=== PATIENT | female | born 1935 | race Caucasian/White ===

== ENCOUNTER 2019-07-07 15:23 | Inpatient (IN) | payer BC ==
[2019-07-07 15:58] VITALS: BMI 37.3
--- NOTE | 2019-07-07 16:10 | PDOC ---
History of Present Illness - General Chief Complaint: Syncope/Near Syncope Stated Complaint: Lightheaded Time Seen by Provider: 07/07/19 16:09 - History of Present Illness Initial Comments: 07/07/19 16:09 Ms. Delgadillo is an 84 yo female w/ pmh of HTN and HLD who presents for evaluation from PCP for evaluation of 3 day history of dizziness with additional . Patient describes this as "feeling drunk" although she denies any EtOH. Patient was at PCP's today who diagnosed new onset afib in 's in office and sent EKG. Additionally, Ms. Delgadillo reports she had a fall 2 weeks ago when her fell into her and that she hurt her lower back MAU at this time. Patient denies other complaints. The patient denies chest pain, shortness of breath, and headache. Denies fever, chills, nausea, vomit, diarrhea and constipation. Denies dysuria, frequency, urgency and hematuria. Past History - Past Medical History Allergies/Adverse Reactions: Allergies Allergy/AdvReac Type Severity Reaction Status Date / Time No Known Allergies Allergy Verified 07/07/19 15:55 HTN: Yes - Psycho Social/Smoking Cessation Hx Smoking History: Never smoked Hx Alcohol Use: No Drug/Substance Use Hx: No Review of Systems - Review of Systems Comments:: 07/07/19 16:53 GENERAL/CONSTITUTIONAL: No fever or chills. No weakness. HEAD, EYES, EARS, NOSE AND THROAT: No change in vision. No ear pain or discharge. No sore throat. CARDIOVASCULAR: No chest pain or shortness of breath RESPIRATORY: No cough, wheezing, or hemoptysis. GASTROINTESTINAL: No nausea, vomiting, diarrhea or constipation. GENITOURINARY: No dysuria, frequency, or change in urination. MUSCULOSKELETAL: No joint or muscle swelling or pain. No neck or back pain. SKIN: No rash NEUROLOGIC: +Dizziness w/ headache as described, no vertigo, loss of consciousness, or change in strength/sensation. ENDOCRINE: No increased thirst. No abnormal weight change HEMATOLOGIC/LYMPHATIC: No anemia, easy bleeding, or history of blood clots. ALLERGIC/IMMUNOLOGIC: No hives or skin allergy. *Physical Exam - Vital Signs Last Vital Signs Temp Pulse Resp BP Pulse Ox 98.8 F 72 18 125/60 98 07/07/19 15:25 07/07/19 15:25 07/07/19 15:25 07/07/19 15:25 07/07/19 15:25 - Physical Exam Comments: 07/07/19 16:54 GENERAL: Awake, alert, and fully oriented, in no acute distress HEAD: No signs of trauma, normocephalic, atraumatic EYES: PERRLA, EOMI, sclera anicteric, conjunctiva clear ENT: Auricles normal inspection, hearing grossly normal, nares patent, oropharynx clear without exudates. Moist mucosa NECK: Normal ROM, supple, no lymphadenopathy, JVD, or masses LUNGS: No distress, speaks full sentences, clear to auscultation bilaterally HEART: Regular rate and rhythm, normal S1 and S2, no murmurs, rubs or gallops, peripheral pulses normal and equal bilaterally. ABDOMEN: Soft, nontender, normoactive bowel sounds. No guarding, no rebound. No masses EXTREMITIES: +1+ Pedal edema MAU, otherwise normal inspection, Normal range of motion, no edema. No clubbing or cyanosis. NEUROLOGICAL: Cranial nerves II through XII grossly intact. Normal speech, normal gait, no focal sensorimotor deficits SKIN: Warm, Dry, normal turgor, no rashes or lesions noted. ED Treatment Course - LABORATORY CBC & Chemistry Diagram: 07/07/19 16:00 07/07/19 16:00 Medical Decision Making - Medical Decision Making 07/07/19 18:17 Ms. Delgadillo is an 84 yo female w/ pmh as described who presents from PCP for evaluation of new onset afib. Patient evaluated with cardiac labs as below and placed on eyelet maker. Repeat EKG confirms afib and patient will be admitted for further cardiac evaluation. Triple Valve Mechanic paged for anticoagulation advice. Hospital team paged for admission. 07/07/19 18:33 Discussed patient with cardiology who suggested 5mg eliquis PO BID for anticoagulation and will evaluate in hospital. Discharge - Discharge Information Problems reviewed: Yes Clinical Impression/Diagnosis: New onset a-fib - Admission Yes - Follow up/Referral Referrals: Jacob Mackey MD [Primary Care Provider] - - Patient Discharge Instructions - Post Discharge Activity
--- NOTE | 2019-07-07 16:53 | PDOC ---
Documentation entered by Julianne Espinoza SCRIBE, acting as scribe for Nirmal Cruz MD. Nirmal Cruz MD: This documentation has been prepared by the Alexis corral Xhesika, SCRIBE, under my direction and personally reviewed by me in its entirety. I confirm that the documentation accurately reflects all work, treatment, procedures, and medical decision making performed by me. Attending Attestation - Resident Resident Name: Karsten Petty - ED Attending Attestation I have performed the following: I have examined & evaluated the patient, The case was reviewed & discussed with the resident, I agree w/resident's findings & plan, Exceptions are as noted - HPI HPI: 07/07/19 16:33 The patient is a 84 year old female with a significant PMH of HTN nad HLD who presents to the emergency department for new onset A-fib in the 90's noted on EKG at PCP office. The patient notes she has been feeling lightheaded for the past couple of days when sitting up. Pt denies any other complaints. Patient denies chest pain, shortness of breath, headache and dizziness. Denies fever, chills, cough, nausea, vomiting, diarrhea and constipation. Allergies: NKDA PCP: Dr. Mackey Cards: Dr. Cameron - Physicial Exam PE: 07/07/19 16:35 GENERAL: The patient is awake, alert, and fully oriented, Nontoxic - in no acute distress. HEAD: Normocephalic, atraumatic. NECK: Normal range of motion, supple without lymphadenopathy, JVD, or masses. LUNGS: Breath sounds equal, clear to auscultation bilaterally. No wheezes, no crackles, no rales. HEART: Irregularly irregular ABDOMEN: Soft, nontender, normoactive bowel sounds. No guarding, no rebound. No masses. EXTREMITIES: Normal range of motion, NEUROLOGICAL: No facial asymmetry, Normal speech, normal gait. PSYCH: Normal mood, normal affect. SKIN: Warm, Dry, normal turgor, no rashes or lesions noted. - Medical Decision Making 07/07/19 16:52 Suspect her lightheadedness may be coming from A. fib The patient is a rate controlled We will obtain blood work we will discuss with cardiology regarding optimal anticoagulation Will admit for further management Heart Score/ECG Review - ECG Impressions Comment:: 07/07/19 16:51 Twelve-lead EKG was performed and reviewed by me. Heart rate is irregularly irregular, rate of [address] wave changes Impression atrial fibrillation
[2019-07-07 16:56] LABS: BASO % 0.9 % (0-2.0); HEMATOCRIT 36.5 % (32.4-45.2); HEMOGLOBIN 12.3 GM/dL (10.7-15.3); LYMPH % 35.7 % (8-40); MCH 30.2 pg (25.7-33.7); MCHC 33.7 g/dl (32.0-36.0); MEAN CELL VOLUME 89.7 fl (80-96); MONO % 9.4 % (3.8-10.2); PLATELET COUNT 140 K/MM3 (134-434); RBC 4.07 M/mm3 (3.60-5.2); RDW 13.4 % (11.6-15.6); WHITE BLOOD COUNT 4.5 K/mm3 (4.0-10.0)
[2019-07-07 17:04] LABS: INR 1.05 (0.83-1.09); PROTHROMBIN TIME (PATIENT) 12.4 SEC (9.7-13.0)
[2019-07-07 17:12] LABS: ALBUMIN 3.7 g/dl (3.4-5.0); BILIRUBIN,TOTAL 1.4 mg/dL (0.2-1); BLOOD UREA NITROGEN 11.2 mg/dL (7-18); CREATININE 0.7 mg/dL (0.55-1.3); POTASSIUM 3.6 mmol/L (3.5-5.1); TOT PROT 6.5 g/dl (6.4-8.2)
[2019-07-07] MEDS ORDERED: APIXABAN 5 MG TABLET ONE (18:37)
[2019-07-07] MEDS: APIXABAN 5 MG TABLET PO SCH ×2 (18:58→22:08)
--- NOTE | 2019-07-07 19:16 | PN ---
Teaching Attending Note Name of Resident: Angelita Potts ATTENDING PHYSICIAN STATEMENT I saw and evaluated the patient. I reviewed the resident's note and discussed the case with the resident. I agree with the resident's findings and plan as documented. SUBJECTIVE: Patient is an 84 year old woman with PMH of Osteoarthritis, HTN, Bilateral total knee replacement and HLD who presents from PCP's office for evaluation of 3 day history of dizziness with headache. Patient describes this as "feeling drunk" although she denies any alcohol ingestion. Patient was at PCP's today who diagnosed new onset Afib. Additionally, patient reports she had a fall 2 weeks ago when her fell into her and that she hurt her lower back. She uses a cane. Had been on lasix for leg edema but no official diagnosis of CHF. Patient denies chest pain, shortness of breath, headache, fever, chills, nausea , vomit, diarrhea, constipation, dysuria, frequency, urgency or hematuria. Denies tobacco, alcohol or illicit drug use. No obvious sick contacts or recent travel. OBJECTIVE: Alert and orthostatic Vital Signs Period Temp Pulse Resp BP Sys/Myrick Pulse Ox Last 24 Hr 98.8 F 72 18 125/60 98-99 HEENT: No Jaundice, eye redness or discharge, PERRLA, EOMI. Normocephalic, atraumatic. External ears are normal and hearing is grossly intact. No nasal discharge. Neck: Supple, nontender. No palpable adenopathy or thyromegaly. No JVD Chest: Good effort. Clear to auscultation and percussion. Heart: Irregularly irregular. No S3, rub or murmur Abdomen: Not distended, soft, Epigastric and LUQ tenderness and no HSM. No rebound or guarding. Normal bowel sounds. Ext: Peripheral pulses intact. Leg edema, L>R. Skin: Warm and dry. No petechiae, rash or ecchymosis. Neuro: Alert. Oriented x3. CN 2-12 grossly intact. Sensation grossly intact in all four extremities and DTR are symmetric. Psych: Appropriate mood and affect. Good insight. Current Medications Generic Name Dose Route Start Last Admin Trade Name Freq PRN Reason Stop Dose Admin Apixaban 5 mg 07/07/19 18:33 07/07/19 18:58 Eliquis - PO 5 mg BID RIZWAN Administration Abnormal Lab Results 07/07/19 07/07/19 07/07/19 16:00 16:00 16:00 Eosinophils % 5.0 H Anion Gap 5 L Total Bilirubin 1.4 H AST 14 L B-Natriuretic Peptide TSH 0.23 L 07/07/19 16:00 Eosinophils % Anion Gap Total Bilirubin AST B-Natriuretic Peptide 1134.7 H TSH ASSESSMENT AND PLAN: 1. New onset Afib - CXR shows cardiomegaly, pulmonary congestion and hilar prominence. CXR shows cardiomegaly, poor inspiratory effort/pulmonary congestion and hilar prominence. EKG shows afib with rate of 86 and T wave inversion in II, aVF, V1-5; and initial troponin is negative. Her [id number] score is 4 - ER staff spoke to the trouble operator and patient was started on Eliquis in the ER. Will get ECHO, repeat EKG and troponin and get fasting lipids. May have undiagnosed CHF (?diastolic dysfunction). Will avoid B blockers or diureses for now pending ECHO - in view of orthostasis/dizziness. Has low TSH - will get free T4 and T3RU; leg doppler and upper abdominal sonogram. Urinalysis pending. Will continue comprehensive care for all of patients comorbid conditions. 2. Obesity Counseled on the risks associated with obesity. Will provide patient all the necessary assistance, counseling and positive reinforcement to facilitate weight loss. Consult veterinary radiologist. 3. Hypertension - Restart suitable outpatient antihypertensive drugs when clinically appropriate. Revise regimen to ensure [id number] excellent BP control and staff counselor patient on the injurious effects of uncontrolled hypertension. Nonpharmacologic measures to control hypertension like weight loss , salt restriction and exercise discussed. Importance of adherence to treatment regimen and attainment of normotension emphasized. 4. DVT prophylaxis - On Eliquis 5. Advance directives - Full code
--- NOTE | 2019-07-07 19:45 | HP ---
CHIEF COMPLAINT: new onset afib PCP: Dr. Krishnamurthy HISTORY OF PRESENT ILLNESS: Pt is an 84 y/o F w/ pmhx of HLD presenting to ED from her PCP office after she was found to be in Afib. Pt reports that for the past 3 days she experienced 1 to 2 episodes of dizziness a day. The dizziness is worsened with standing and improves with sitting. Also associated with blacking out of vision which quickly resolves. Pt had a similar episode 1 year ago, during the summer, in which she felt dizzy and fell to the ground. Pt denies any falls with her current dizzy spells over the last 3 days. Pt has been using a cane for ambulation since 2005. On ROS she endorsed left sided lower back pain which started after her fell on top of her 3 weeks ago while she was helping him in the bathroom. In addition, she is complaining of her feet feeling colder than usual. Pt denies fever, chills, RAYMOND, SOB, jaw pain, chest pain, Abd pain, urinary changes or numbness and tingling. Pt has been on Lasix and a potassium supplement since 2014 due to edema, but she cannot recall an exact diagnosis. ER course was notable for: (1) EKG with irregularly irregular rhythm, HR 86, non-specific T wave change (2) Trop negative, BNP 1134.7, TSH 0.23, Tbili 1.4 (3) CXR showing cardiomegaly, pulmonary congestion and hilar prominence. Recent Travel: denies PAST MEDICAL HISTORY: HLD, HTN ? 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 Residence: Pt lives with her uses cane to walk Allergies No Known Allergies Allergy (Verified 07/07/19 15:55) HOME MEDICATIONS: REVIEW OF SYSTEMS CONSTITUTIONAL: Absent: fever, chills, diaphoresis, generalized weakness, malaise, loss of appetite, weight change HEENT: visual changes- blacking out of vision with dizziness Absent: rhinorrhea, nasal congestion, throat pain, throat swelling, difficulty swallowing, mouth swelling, ear pain, eye pain, CARDIOVASCULAR: Absent: chest pain, syncope, palpitations, irregular heart rate, lightheadedness , peripheral edema RESPIRATORY: Absent: cough, shortness of breath, dyspnea with exertion, orthopnea, wheezing, stridor, hemoptysis GASTROINTESTINAL: Absent: abdominal pain, abdominal distension, nausea, vomiting, diarrhea, constipation, melena, hematochezia GENITOURINARY: Absent: dysuria, frequency, urgency, hesitancy, hematuria, flank pain, genital pain MUSCULOSKELETAL: Absent: myalgia, arthralgia, joint swelling, back pain, neck pain SKIN: Absent: rash, itching, pallor HEMATOLOGIC/IMMUNOLOGIC: Absent: easy bleeding, easy bruising, lymphadenopathy, frequent infections ENDOCRINE: Absent: unexplained weight gain, unexplained weight loss, heat intolerance, cold intolerance NEUROLOGIC: dizziness, Absent: headache, focal weakness or paresthesias, unsteady gait, seizure, mental status changes, bladder or bowel incontinence PSYCHIATRIC: Absent: anxiety, depression, suicidal or homicidal ideation, hallucinations. PHYSICAL EXAMINATION Vital Signs - 24 hr 07/07/19 07/07/19 15:25 16:30 Temperature 98.8 F Pulse Rate 72 Respiratory 18 Rate Blood Pressure 125/60 O2 Sat by Pulse 98 99 Oximetry (%) GENERAL: Awake, alert, and fully oriented, in no acute distress. Orthostatic vitals: supine 116/66 (HR 77), sitting 103/63 (HR 81), standing 84/55 (HR 86) HEAD: Normal with no signs of trauma. EYES: Pupils equal, round and reactive to light, extraocular movements intact, sclera anicteric, conjunctiva clear. No lid lag. EARS, NOSE, THROAT: Ears normal, nares patent, oropharynx clear without exudates. Moist mucous membranes. NECK: Normal range of motion, supple without lymphadenopathy, JVD, or masses. LUNGS: Breath sounds equal, clear to auscultation bilaterally. No wheezes, and no crackles. No accessory muscle use. HEART: Regular rate, irregularly irregular rhythm, normal S1 and S2 without murmur, rub or gallop. ABDOMEN: Soft, TTP in epigastric area and LUQ, not distended, normoactive bowel sounds, no guarding, no rebound, no masses. MUSCULOSKELETAL: Normal range of motion at all joints. No bony deformities or tenderness. No CVA tenderness. UPPER EXTREMITIES: 2+ pulses, warm, well-perfused. No cyanosis. No clubbing. No peripheral edema. LOWER EXTREMITIES: 2+ pulses, warm, well-perfused. TTP on L lower leg above ankle, no tenderness on R leg. 1+ peripheral edema L>R. NEUROLOGICAL: Cranial nerves II-XII intact. Normal speech. Normal gait. PSYCHIATRIC: Cooperative. Good eye contact. Appropriate mood and affect. SKIN: Warm, dry, normal turgor, no rashes or lesions noted, normal capillary refill. Laboratory Results - last 24 hr 07/07/19 07/07/19 07/07/19 16:00 16:00 16:00 WBC 4.5 RBC 4.07 Hgb 12.3 Hct 36.5 MCV 89.7 MCH 30.2 MCHC 33.7 RDW 13.4 Plt Count 140 MPV 10.0 Absolute Neuts (auto) 2.2 Neutrophils % 49.0 Lymphocytes % 35.7 Monocytes % 9.4 Eosinophils % 5.0 H Basophils % 0.9 Nucleated RBC % 0 PT with INR INR Sodium 140 Potassium 3.6 Chloride 106 Carbon Dioxide 29 Anion Gap 5 L BUN 11.2 Creatinine 0.7 Est GFR (CKD-EPI)AfAm 92.86 Est GFR (CKD-EPI)NonAf 80.12 Random Glucose 87 Calcium 9.0 Total Bilirubin 1.4 H AST 14 L ALT 16 Alkaline Phosphatase 78 Creatine Kinase 83 Troponin I < 0.02 B-Natriuretic Peptide Total Protein 6.5 Albumin 3.7 TSH 0.23 L Free T4 07/07/19 07/07/19 07/07/19 16:00 16:00 16:00 WBC RBC Hgb Hct MCV MCH MCHC RDW Plt Count MPV Absolute Neuts (auto) Neutrophils % Lymphocytes % Monocytes % Eosinophils % Basophils % Nucleated RBC % PT with INR 12.40 INR 1.05 Sodium Potassium Chloride Carbon Dioxide Anion Gap BUN Creatinine Est GFR (CKD-EPI)AfAm Est GFR (CKD-EPI)NonAf Random Glucose Calcium Total Bilirubin AST ALT Alkaline Phosphatase Creatine Kinase Troponin I B-Natriuretic Peptide 1134.7 H Total Protein Albumin TSH Free T4 1.25 ASSESSMENT/PLAN: Pt is an 84 y/o F w/ pmhx of HLD presenting to ED from her PCP office after she was found to be in Afib. Pt reports that for the past 3 days she experienced 1 to 2 episodes of dizziness a day. # New onset Afib - CXR shows cardiomegaly, poor inspiratory effort/pulmonary congestion and hilar prominence. EKG shows afib with rate of 86 and T wave inversion in II, aVF, V1-5; and initial troponin is negative x2. Her [id number] VASc score is 4. May have undiagnosed CHF (?diastolic dysfunction). Will avoid B blockers or diureses for now pending ECHO - given that pt has orthostasis and dizziness on physical exam. Pt also found to have elevated T bili with TTP in her upper abdominal area on physical exam in addition to LE edema and TTP in the LLE, will obtain u/s to r/o pathology. - ED consulted cardiology, Dr. Cameron, and patient was started on Eliquis 5mg BID in the ED. - Cardiology following, appreciate recommendations - ECHO - repeat EKG - obtain fasting lipids. - leg doppler and upper abdominal sonogram. # Low TSH - 0.23 - free T4 and T3RU # HTN- HTN listed in pt pmhx however pt denies this dx and states she doesn't take any HTN meds, BPs have been low in ED and pt has + orthostatic vitals - confirm pt home meds - if pt has hypertension meds, resume when clinically appropriate # FEN - holding maintenance fluids for now pending CHF w/u - replete PRN - diabetic/ Na controlled diet # Ppx - DVT prophylaxis - On Eliquis # Dispo- admit to tele, full code Visit type - Emergency Visit Emergency Visit: Yes ED Registration Date: 07/07/19 Care time: The patient presented to the Emergency Department on the above date and was hospitalized for further evaluation of their emergent condition. - New Patient This patient is new to me today: Yes Date on this admission: 07/08/19 - Critical Care Critical Care patient: No ATTENDING PHYSICIAN STATEMENT I saw and evaluated the patient. I reviewed the resident's note and discussed the case with the resident. I agree with the resident's findings and plan as documented. SUBJECTIVE: OBJECTIVE: ASSESSMENT AND PLAN:
[2019-07-08] MEDS: SODIUM CHLORIDE 1,000 ML IV SCH (06:30)
[2019-07-08 06:59] LABS: BASO % 1.1 % (0-2.0); EOS % 5.6 % (0-4.5); HEMOGLOBIN 11.9 GM/dL (10.7-15.3); LYMPH % 36.4 % (8-40); MCH 30.3 pg (25.7-33.7); MEAN CELL VOLUME 88.9 fl (80-96); MEAN PLT VOLUME 9.6 fl (7.5-11.1); MONO % 8.5 % (3.8-10.2); NEUT % 48.4 % (42.8-82.8); PLATELET COUNT 133 K/MM3 (134-434); RBC 3.94 M/mm3 (3.60-5.2); RDW 13.4 % (11.6-15.6); WHITE BLOOD COUNT 3.5 K/mm3 (4.0-10.0)
[2019-07-08 07:33] LABS: ALBUMIN 3.3 g/dl (3.4-5.0); BILIRUBIN,TOTAL 1.6 mg/dL (0.2-1); BLOOD UREA NITROGEN 12.3 mg/dL (7-18); CALCIUM 8.8 mg/dL (8.5-10.1); CREATININE 0.7 mg/dL (0.55-1.3); MAGNESIUM 2.2 mg/dL (1.8-2.4); PHOSPHOROUS 4.2 mg/dL (2.5-4.9); POTASSIUM 3.7 mmol/L (3.5-5.1)
[2019-07-08] MEDS: APIXABAN 5 MG TABLET PO SCH ×2 (10:48→21:40)
--- NOTE | 2019-07-08 10:50 | CON.CARD ---
Consult Consult Specialty:: Cardiology Referred by:: Medicine Reason for Consultation:: afib - History of Present Illness Chief Complaint: dizzy History of Present Illness: 84F h/o HTN, HLD p/w 3 days of dizziness, headache. Feels unsteady and like she is drunk but has not used alcohol. Went to Dr. Mackey yesterday, new dx afib. No chest pain, palps, dyspnea, edema. Feels a little better today. - Alcohol/Substance Use Hx Alcohol Use: No - Smoking History Smoking history: Never smoked Have you smoked in the past 12 months: No Home Medications - Allergies Allergies/Adverse Reactions: Allergies Allergy/AdvReac Type Severity Reaction Status Date / Time No Known Allergies Allergy Verified 07/07/19 15:55 Family Medical History Family History: Unremarkable Review of Systems - Review of Systems Constitutional: reports: No Symptoms Eyes: reports: No Symptoms HENT: reports: No Symptoms Neck: reports: No Symptoms Cardiovascular: reports: No Symptoms Respiratory: reports: No Symptoms Gastrointestinal: reports: No Symptoms Genitourinary: reports: No Symptoms Musculoskeletal: reports: No Symptoms Integumentary: reports: No Symptoms Neurological: reports: Dizziness Endocrine: reports: No Symptoms Hematology/Lymphatic: reports: No Symptoms Psychiatric: reports: No Symptoms Vital Signs: Vital Signs Temperature 98.1 F 07/08/19 06:00 Pulse Rate 79 07/08/19 06:00 Respiratory Rate 20 07/08/19 06:00 Blood Pressure 113/40 L 07/08/19 06:00 O2 Sat by Pulse Oximetry (%) 95 07/07/19 22:14 Constitutional: Yes: No Distress, Calm Eyes: Yes: Conjunctiva Clear, EOM Intact HENT: Yes: Atraumatic, Normocephalic Neck: Yes: Supple, Trachea Midline Respiratory: Yes: Regular, CTA Bilaterally Gastrointestinal: Yes: Normal Bowel Sounds, Soft Cardiovascular: Yes: Pulse Irregular JVD: No PMI: Non-Displaced Heart Sounds: Yes: S1, S2 Extremities: No: Cold Edema: No Integumentary: No: Jaundice Neurological: Yes: Alert, Oriented Psychiatric: No: Agitated - Other Data Labs, Other Data: CBC, BMP 07/08/19 06:30 07/08/19 06:30 INR, PTT INR 1.05 (0.83-1.09) 07/07/19 16:00 Troponin, BNP 07/07/19 07/07/19 07/08/19 16:00 16:00 02:25 Troponin I < 0.02 < 0.02 B-Natriuretic Peptide 1134.7 H Troponin, BNP 07/07/19 07/07/19 07/08/19 16:00 16:00 02:25 Troponin I < 0.02 < 0.02 B-Natriuretic Peptide 1134.7 H Assessment/Plan EKG: afib, nonspecific ST T wave changes CXR: no acute process tele: afib, rate controlled atrial fibrillation - start metoprolol succinate 12.5 mg daily - [id number] warrants AC, however patient refuses to take a blood thinner due to fears she may bleed. discussed with patient at length, she understands risk of stroke. mode wilson'ed - continue aspirin 81 mg daily -echo pending dizziness - monitoring on tele - check orthostatics - echo pending HTN - stable here off meds, start metoprolol as above
--- NOTE | 2019-07-08 11:58 | ECHO ---
Name: LUIS GRADY Exam:Adult Echocardiogram Study Date: 07/08/2019 08:35 AM Age: 84 yrs Reason For Study: ef Height: 66 in Weight: 231 lb BSA: 2.1 m2 MMode/2D Measurements & Calculations IVSd: 1.0 cm Ao root diam: 3.3 cm LVIDd: 5.1 cm LA dimension: 2.4 cm LVIDs: 3.5 cm LVPWd: 0.90 cm EDV(Teich): 124.5 ml LVOT diam: 2.0 cm ESV(Teich): 51.1 ml LAV (MOD-bp): 108.0 ml Doppler Measurements & Calculations MV E max marco a: 110.0 cm/sec Ao V2 max: 148.7 cm/sec MV A max marco a: 39.3 cm/sec Ao max P.8 mmHg MV E/A: 2.8 AI P1/2t: 326.2 msec MV dec time: 0.15 sec KATIE(V,D): 2.1 cm2 AI max marco a: 365.9 cm/sec LV V1 max P.5 mmHg AI max P.5 mmHg LV V1 max: 93.1 cm/sec AI dec slope: 328.5 cm/sec2 MR max marco a: 332.5 cm/sec TR max marco a: 236.9 cm/sec MR max P.2 mmHg TR max P.9 mmHg PA V2 max: 99.1 cm/sec Med Peak E' Marco A: 7.8 cm/sec PA max P.9 mmHg Med E/e': 14.0 Lat Peak E' Marco A: 10.3 cm/sec Lat E/e': 10.6 PI Vmax: 171.0 cm/sec Procedure The study was technically difficult with many images being suboptimal in quality. Left Ventricle The left ventricular size, thickness and function are normal. The left ventricular ejection fraction is normal. The left ventricular wall motion is normal. Right Ventricle The right ventricle is not well visualized. Atria Normal left and right atrial size and function. Mitral Valve There is mild mitral valve thickening. There is no mitral valve stenosis. There is mild to moderate m itral regurgitation. Tricuspid Valve There is mild tricuspid valve thickening. There is no tricuspid stenosis. There is mild tricuspid regurgitation. Right ventricular systolic pressure is normal. Aortic Valve The aortic valve is normal in structure and function. No hemodynamically significant valvular aortic stenosis. Trace to mild aortic regurgitation. Pulmonic Valve The pulmonic valve is not well visualized. Great Vessels The aortic root is normal size. Pericardium/Pleura There is no pericardial effusion. Interpretation Summary The left ventricular size, thickness and function are normal The left ventricular ejection fraction is normal. The left ventricular wall motion is normal. There is mild tricuspid regurgitation. Right ventricular systolic pressure is normal. Trace to mild aortic regurgitation. There is mild to moderate mitral regurgitation. The study was technically difficult with many images being suboptimal in quality. MD Marquez Stallings 07/08/2019 11:58 AM
--- NOTE | 2019-07-08 12:17 | EKG ---
Test Reason : Blood Pressure : / mmHG Vent. Rate : 086 BPM Atrial Rate : 092 BPM P-R Int : 000 ms QRS Dur : 084 ms QT Int : 408 ms P-R-T Axes : 000 025 -56 degrees QTc Int : 488 ms POOR DATA QUALITY, INTERPRETATION MAY BE ADVERSELY AFFECTED ATRIAL FIBRILLATION ABNORMAL ECG WHEN COMPARED WITH ECG OF 23-DEC-2002 15:25, ATRIAL FIBRILLATION HAS REPLACED SINUS RHYTHM INVERTED T WAVES HAVE REPLACED NONSPECIFIC T WAVE ABNORMALITY IN LATERAL LEADS QT HAS LENGTHENED Confirmed by BETHANY CORBETT, ANTONIETA ([id number]) on 07/08/2019 12:16:54 PM Referred By: Confirmed By:ANTONIETA SIMS MD
[2019-07-08] MEDS: metoPROLOL SUCCINATE 25 MG TAB.SR.24H (FP) PO SCH (12:23)
--- NOTE | 2019-07-08 14:16 | PN ---
Teaching Attending Note Name of Resident: Susan Urrutia ATTENDING PHYSICIAN STATEMENT I saw and evaluated the patient. I reviewed the resident's note and discussed the case with the resident. I agree with the resident's findings and plan as documented. SUBJECTIVE: no fever or chills. No palpitations . no cp ro SOB. OBJECTIVE: NAD , awake, alert and oriented. CV:regular at the time of the exam Lungs: CTAB Ext : trace edema on LE Neck with no LAP . thyroid with no nodules or enlargement ASSESSMENT AND PLAN: 84 y/o lady with h/o HTN, OA, b/l TKR, and HLP who presented with dizziness and was found to have new onset A fib . 1- New onset A fib: trigger is not known. Echo with mild to mod MR. TFTs indicate subclinical hyperthyroidism. No sings of CHF - appreciate card input - cont torpol - cont ASa. refused any AC, including eliquis, due to risk og bleeding. I d.w her the risk of stroke , and that ASA is not as protective. She understands and accepts - Will address TFT 2- Subclinical hyperthyroidism: - will as Endo to evaluate if treatment is needed in the setting of new onset A fib. - obtain FT3 3- Elevated total bili. with nl LFTs - US with stones and CBD dialtion. - Order direct Bili - Order MRCP w/o c 4- Pancytopenia ( leukopenia and thrombocytopenia) . - etiology is not known, it could be due to Subclinical hyperthyroidism, Vs viral illness, VS BM etiology like MDS especially with the Eosinophelia - will refer to heme as out pt . repeat testing as out pt DIspo : discharge depends on above w/u and findings.
--- NOTE | 2019-07-08 14:23 | EKG ---
Test Reason : Blood Pressure : / mmHG Vent. Rate : 086 BPM Atrial Rate : 100 BPM P-R Int : 000 ms QRS Dur : 096 ms QT Int : 410 ms P-R-T Axes : 000 009 -67 degrees QTc Int : 490 ms ATRIAL FIBRILLATION PROLONGED QT ABNORMAL ECG WHEN COMPARED WITH ECG OF 07-JUL-2019 15:39, NO SIGNIFICANT CHANGE WAS FOUND Confirmed by ANTONIETA SIMS MD ([id number]) on 07/08/2019 2:22:39 PM Referred By: Confirmed By:ANTONIETA SIMS MD
[2019-07-08] MEDS ORDERED: PT OWN MED DRAWER 7, Y5N ONE (16:12)
[2019-07-08 16:56] LABS: BILIRUBIN,DIRECT 0.4 mg/dL (0.0-0.2)
[2019-07-08] MEDS: METHIMAZOLE 5 MG TABLET (FP) PO SCH (17:59)
--- NOTE | 2019-07-08 18:11 | PN ---
Physical Exam: SUBJECTIVE: Patient seen and examined in the morning. No acute events overnight on telemetry monitoring. No complaints of chest pain, shortness of breath, abdominal pain, nausea, vomiting, diarrhea, headache or dizziness. OBJECTIVE: Vital Signs Period Temp Pulse Resp BP Sys/Myrick Pulse Ox Last 24 Hr 97.8 F-98.1 F 72-88 10-22 104-122/40-79 95-98 GENERAL: The patient is awake, alert, and fully oriented, in no acute distress. HEAD: Normal with no signs of trauma. EYES: PERRL, extraocular movements intact, sclera anicteric, conjunctiva clear. LUNGS: Breath sounds equal, clear to auscultation bilaterally, no wheezes, no crackles HEART: Irregularly irregular. No murmurs appreciated. ABDOMEN: Soft, nontender, nondistended, normoactive bowel sounds, no guarding, no rebound. EXTREMITIES: 2+ pulses, warm, well-perfused, +1 edema b/l lower extremities. NEUROLOGICAL: Cranial nerves II through XII grossly intact. Normal speech SKIN: Warm, dry, normal turgor, no rashes or lesions noted Laboratory Results - last 24 hr 07/07/19 07/08/19 07/08/19 16:00 02:25 06:30 WBC 3.5 L RBC 3.94 Hgb 11.9 Hct 35.0 MCV 88.9 MCH 30.3 MCHC 34.0 RDW 13.4 Plt Count 133 L MPV 9.6 Absolute Neuts (auto) 1.7 Neutrophils % 48.4 Lymphocytes % 36.4 Monocytes % 8.5 Eosinophils % 5.6 H Basophils % 1.1 Nucleated RBC % 0 Sodium Potassium Chloride Carbon Dioxide Anion Gap BUN Creatinine Est GFR (CKD-EPI)AfAm Est GFR (CKD-EPI)NonAf Random Glucose Calcium Phosphorus Magnesium Total Bilirubin Direct Bilirubin AST ALT Alkaline Phosphatase Troponin I < 0.02 Total Protein Albumin Triglycerides Cholesterol Total LDL Cholesterol HDL Cholesterol TSH Free T4 1.25 07/08/19 07/08/19 06:30 06:30 WBC RBC Hgb Hct MCV MCH MCHC RDW Plt Count MPV Absolute Neuts (auto) Neutrophils % Lymphocytes % Monocytes % Eosinophils % Basophils % Nucleated RBC % Sodium 142 Potassium 3.7 Chloride 108 H Carbon Dioxide 30 Anion Gap 5 L BUN 12.3 Creatinine 0.7 Est GFR (CKD-EPI)AfAm 92.86 Est GFR (CKD-EPI)NonAf 80.12 Random Glucose 91 Calcium 8.8 Phosphorus 4.2 Magnesium 2.2 Total Bilirubin 1.6 H Direct Bilirubin 0.4 H AST 13 L ALT 13 Alkaline Phosphatase 74 Troponin I Total Protein 6.0 L Albumin 3.3 L Triglycerides 137 Cholesterol 149 Total LDL Cholesterol 79 HDL Cholesterol 46 TSH 0.35 L Free T4 Active Medications Generic Name Dose Route Start Last Admin Trade Name Freq PRN Reason Stop Dose Admin Aspirin 81 mg 07/09/19 10:00 Ecotrin - PO DAILY RIZWAN Sodium Chloride 1,000 mls @ 75 mls/hr 07/08/19 05:45 07/08/19 06:30 Normal Saline - IV 75 mls/hr ASDIR RIZWAN Administration Methimazole 2.5 mg 07/08/19 15:45 07/08/19 17:59 Tapazole - PO 2.5 mg DAILY RIZWAN Administration Metoprolol Succinate 12.5 mg 07/08/19 11:00 07/08/19 12:23 Toprol Xl - PO 12.5 mg DAILY RIZWAN Administration ASSESSMENT/PLAN: 84 F with PMH of HLD who presents with new onset Afib. 1) New Onset Afib -Echo shows mild to moderate MR, with normal left ventricular function. -Metoprolol 12.5 mg BID PO -Eliquis 5 mg BID PO -Continue ASA 81 mg PO -Cardiology consulted, appreciate recs 2)Suspected Subclinical hyperthyroidism -Repeat TSH, T4, T3 -Methimazole 2.5 mg PO Qdaily -Endocrinology consulted, appreciate recs 3)Elevated total bilirubin -Abdominal U/S shows dilated CBD. -Follow up fractionated billirubin. -MRCP for tomorrow. 4)Pancytopenia -May be secondary to viral illness, or to hyperthyroidism, or to MDS. -Will need to follow up with Heme/Onc as outpatient. -Trend CBC 5) Hx of HLD -Continue Atorvastatin 40 mg PO HS DVT: Patient is now Eliquis 5 mg PO BID F: NS @ 75 ml/hr E: Trend CMP N: Diabetic/Sodium Week Dispo: Admitted to telemetery. Visit type - Emergency Visit Emergency Visit: Yes ED Registration Date: 07/07/19 Care time: The patient presented to the Emergency Department on the above date and was hospitalized for further evaluation of their emergent condition. - New Patient This patient is new to me today: Yes Date on this admission: 07/08/19 - Critical Care Critical Care patient: No ATTENDING PHYSICIAN STATEMENT I saw and evaluated the patient. I reviewed the resident's note and discussed the case with the resident. I agree with the resident's findings and plan as documented. SUBJECTIVE: OBJECTIVE: ASSESSMENT AND PLAN:
[2019-07-08] MEDS ORDERED: ATORVASTATIN CA 40 MG TABLET (FP) PO SCH (22:00)
[2019-07-08] MEDS ORDERED: APIXABAN 2.5 MG TABLET PO SCH (22:00)
[2019-07-09 07:04] LABS: BASO % 1.2 % (0-2.0); EOS % 5.4 % (0-4.5); HEMOGLOBIN 11.9 GM/dL (10.7-15.3); LYMPH % 31.6 % (8-40); MCH 30.1 pg (25.7-33.7); MCHC 34.1 g/dl (32.0-36.0); MEAN CELL VOLUME 88.4 fl (80-96); MEAN PLT VOLUME 9.8 fl (7.5-11.1); MONO % 8.9 % (3.8-10.2); NEUT % 52.9 % (42.8-82.8); PLATELET COUNT 131 K/MM3 (134-434); RBC 3.96 M/mm3 (3.60-5.2); RDW 14.1 % (11.6-15.6); WHITE BLOOD COUNT 3.6 K/mm3 (4.0-10.0)
[2019-07-09 07:55] LABS: BILIRUBIN,DIRECT 0.4 mg/dL (0.0-0.2); BILIRUBIN,TOTAL 1.4 mg/dL (0.2-1); BLOOD UREA NITROGEN 11.2 mg/dL (7-18); CREATININE 0.6 mg/dL (0.55-1.3); POTASSIUM 3.6 mmol/L (3.5-5.1)
[2019-07-09] MEDS: SODIUM CHLORIDE 1,000 ML IV SCH (08:42)
[2019-07-09] MEDS ORDERED: ASPIRIN COATED 81 MG TABLET.EC PO SCH (10:00)
[2019-07-09] MEDS ORDERED: PT OWN MED DRAWER 7, Y5N ONE (10:19)
[2019-07-09] MEDS: APIXABAN 5 MG TABLET PO SCH (10:20)
[2019-07-09] MEDS: metoPROLOL SUCCINATE 25 MG TAB.SR.24H (FP) PO SCH (10:21)
[2019-07-09] MEDS: METHIMAZOLE 5 MG TABLET (FP) PO SCH (10:33)
--- NOTE | 2019-07-09 11:28 | PN ---
Progress Note (short form) - Note Progress Note: s: no cp sob palps dizzy Current Medications Generic Name Dose Route Start Last Admin Trade Name Donita PRN Reason Stop Dose Admin Apixaban 5 mg 07/08/19 22:00 07/09/19 10:20 Eliquis - PO 5 mg BID RIZWAN Administration Atorvastatin Calcium 40 mg 07/08/19 22:00 07/08/19 21:40 Lipitor - PO 40 mg HS RIZWAN Administration Sodium Chloride 1,000 mls @ 75 mls/hr 07/08/19 05:45 07/09/19 08:42 Normal Saline - IV Not Given ASDIR RIZWAN Methimazole 2.5 mg 07/08/19 15:45 07/09/19 10:33 Tapazole - PO 2.5 mg DAILY RIZWNA Administration Metoprolol Succinate 12.5 mg 07/08/19 11:00 07/09/19 10:21 Toprol Xl - PO 12.5 mg DAILY RIZWAN Administration Vital Signs Period Temp Pulse Resp BP Sys/Myrick Pulse Ox Last 24 Hr 97.9 F-98.0 F 80-89 15-20 94-135/59-73 97-97 Constitutional: Yes: No Distress, Calm Eyes: Yes: Conjunctiva Clear Neck: Yes: Supple, Trachea Midline Respiratory: Yes: Regular, CTA Bilaterally Gastrointestinal: Yes: Normal Bowel Sounds, Soft Cardiovascular: Yes: Pulse Irregular JVD: No PMI: Non-Displaced Heart Sounds: Yes: S1, S2 Extremities: No: Cold Edema: No Integumentary: No: Jaundice Neurological: Yes: Alert, Oriented Psychiatric: No: Agitated CBC, BMP 07/09/19 06:25 07/09/19 06:25 Assessment/Plan EKG: afib, nonspecific ST T wave changes CXR: no acute process tele: afib, rate controlled atrial fibrillation - started metoprolol succinate 12.5 mg daily here, rate controlled - [id number] warrants AC, however patient refuses to take a blood thinner due to fears she may bleed. discussed with patient at length, she understands risk of stroke. mode wilson'ed - continue aspirin 81 mg daily - echo here unremarkable dizziness - monitoring on tele - check orthostatics - echo pending HTN - stable cardiac wolf stable
[2019-07-09 14:44] VITALS: TEMP 97.7
--- NOTE | 2019-07-09 14:46 | PN ---
Teaching Attending Note Name of Resident: Royce Lamb ATTENDING PHYSICIAN STATEMENT I saw and evaluated the patient. I reviewed the resident's note and discussed the case with the resident. I agree with the resident's findings and plan as documented. SUBJECTIVE: No pain in chest, no fever or chills, no awad. No dizziness. No palpitations OBJECTIVE: NAD CV: irreg irreg Lungs: CTAB Ext : no edema Abd: soft, NT, ND , NL BS . NO hepatomegaly ASSESSMENT AND PLAN: 84 y/o lady with h/o HTN, OA, b/l TKR, and HLP who presented with dizziness and was found to have new onset A fib . 1- New onset A fib: tele reviewed. rate is controlled . - cont torpol daily - patient agreed to eliquis and it was started yesterday evening. AC with Eliquis was d.w her again, and risks of bleeding including spinal bleed were explained. she understands, and will be cautious about falls, cuts, and will report any bleeding to her PCP 2- Subclinical hyperthyroidism: - case was d/w Dr. Montes by resident. Recs to start methimazole as she has A fib - f/u with him in office - TFTs in 6 weeks 3- CBD dilation on US. no abd pain, tenderness or ALt/ASt/ Alk phos elevation. indirect bili accounts for elevationin total Bili. after agreeing to MRCP, she declined today. - she was instructed she needs MRCP as out pt 4- Pancytopenia ( leukopenia and thrombocytopenia) . - etiology is not known, it could be due to Subclinical hyperthyroidism, Vs viral illness, VS BM etiology like MDS especially with the Eosinophelia - will refer to heme as out pt if count does not recover . repeat testing as out pt - Spoke to dr. Mackey and updated him on the aBove findings and the need for f/u. Dr. mackey confirmed that patient is on lasix 40 mg daily for edema and Kcl 10 meq /daily. so will cont those . I also learned that evelin has ITP, but her WBC was normal before. she still needs heme f/u if counts don't recover. DC home
[2019-07-09 14:48] VITALS: BP 130/79; PULSE 82
--- NOTE | 2019-07-09 18:26 | DS ---
Physical Exam: SUBJECTIVE: Patient seen and examined in the morning. Patient had runs of Atrial Fibrillation overnight. No complaints of chest pain, shortness of breath , abdominal pain, nausea, vomiting, diarrhea, headache, or dizziness. OBJECTIVE: Vital Signs Period Temp Pulse Resp BP Sys/Myrick Pulse Ox Last 24 Hr 97.7 F-98.0 F 80-89 15-20 93-135/53-79 97-97 PHYSICAL EXAM GENERAL: The patient is awake, alert, and fully oriented, in no acute distress. HEAD: Normal with no signs of trauma. EYES: PERRL, extraocular movements intact, sclera anicteric, conjunctiva clear. LUNGS: Breath sounds equal, clear to auscultation bilaterally, no wheezes, no crackles HEART: S1 S2, regular rate and rhythm on exam. No murmurs. ABDOMEN: Soft, nontender, nondistended, normoactive bowel sounds, no guarding, no rebound. EXTREMITIES: 2+ pulses, warm, well-perfused, +1 edema b/l lower extremities. NEUROLOGICAL: Cranial nerves II through XII grossly intact. Normal speech SKIN: Warm, dry, normal turgor, no rashes or lesions noted LABS Laboratory Results - last 24 hr 07/08/19 07/09/19 07/09/19 06:00 06:25 06:25 WBC 3.6 L RBC 3.96 Hgb 11.9 Hct 35.0 MCV 88.4 MCH 30.1 MCHC 34.1 RDW 14.1 Plt Count 131 L MPV 9.8 Absolute Neuts (auto) 1.9 Neutrophils % 52.9 Lymphocytes % 31.6 Monocytes % 8.9 Eosinophils % 5.4 H Basophils % 1.2 Nucleated RBC % 0 Sodium 140 Potassium 3.6 Chloride 107 Carbon Dioxide 29 Anion Gap 4 L BUN 11.2 Creatinine 0.6 Est GFR (CKD-EPI)AfAm 97.69 Est GFR (CKD-EPI)NonAf 84.29 Random Glucose 94 Calcium 9.0 Total Bilirubin 1.4 H Direct Bilirubin 0.4 H Free T3 3.2 HOSPITAL COURSE: Date of Admission:07/07/19 Date of Discharge: 07/09/19 84 F with PMH of HLD who presents with new onset Afib. Patient was seen by cardiology and was started on Eliquis 5mg PO BID. Patient was also started on Metoprolol 12.5 mg BID for rate control. Echo was completed and showed normal EF , and normal left ventricular function. Patient's ASA 81 mg was stopped. Patient was diagnosed with subclinical hyperthyroidism and was started on 2.5 mg methimazole PO Qdaily. Patient was also seen to have elevated total bilirubin , however repeat bilirbuin fractionation showed that it was due to unconjugated bilirubin. Patient was seen to be pancytopenic with eosinophilia, will follow up with Heme/Onc as outpatient. Patient refused MRI after she was found to have CBD dilation with gallstone. Was recommended to have MRI done as outpatient and follow up with GI. Relevant Imaging done this stay: Echo: Normal left ventricular size, normal left ventricular ejection fraction, mild tricuspid regurgitation, trace to mild aortic regurgitation, mild to moderate mitral regurgitation. Abdomen U/S: Overdistended gallbladder with intraluminal stones and without sonographic evidence of acute cholecystitis. Dilated common bile duct measuring 9.7 mm in diameter for which further evaluation is needed to rule out distal obstruction. Minutes to complete discharge: 35 Discharge Summary Problems reviewed: Yes Reason For Visit: NEW ONSET AFIB Current Active Problems Dilated cbd, acquired (Acute) New onset a-fib (Chronic) Pancytopenia (Chronic) Condition: Improved - Instructions Diet, Activity, Other Instructions: You were admitted to the hospital for palpitations. you were found to have Atrial fibrillation We are prescribing you blood thinner to help prevent complications from your new atrial fibrillation. Please take: Eliquis 5 mg, by mouth, twice a day. To help control your heart rate please take: Metoprolol succinate 12.5 mg by mouth daily While you were here we also found that your thyroid levels are low. Please take: Methimazole 2.5 mg by mouth once a day It is important that you follow up with the grain receiver, please call and make an appointment for Saturday, or after you see Dr. Mackey. you need repeat thyroid levels in 6-8 weeks We adjusted the dosage of your Lasix. Please take Lasix 40 mg, by mouth, daily. you common bile duct was dilated on ultrasound. you need MRI to evaluate the cause and rule out obstruction. You did not want to have the MRI done in the hospital. We highly recommend you follow up with a GI doctor and have an MRI done as an outpatient. We looked at your blood and found that you had an abnormal value in you eosinophils. This is one of the cells in your blood. It is important that you have repeat blood work (CBC) in one week to follow this number. We have provided a referral for the hemetologist if your count does not normalize . Please continue your other home medications as prescribed. Please make an appointment to follow up with your primary care physician within one week. Return to the Emergency Department if you have nausea, vomiting, headache, chest pain, or dizziness. Referrals: Jacob Mackey MD [Primary Care Provider] - 07/14/19 Ezequiel Abreu DO [Staff Physician] - 2 Weeks Yue Olsen MD [Staff Physician] - 1 Week Nirmal Nevarez MD [Staff Physician] - 3 Weeks Yareli Vasquez MD [Staff Physician] - 07/17/19 Disposition: HOME - Home Medications Comprehensive Discharge Medication List: Ambulatory Orders Atorvastatin Ca [Lipitor] 40 mg PO HS 07/08/19 Methimazole 2.5 mg PO DAILY #30 tablet 07/08/19 Metoprolol Succinate [Toprol XL -] 12.5 mg PO DAILY #30 tab.sr.24h 07/08/19 Potassium Chloride 10 meq PO DAILY 07/08/19 Apixaban [Eliquis] 5 mg PO BID 30 Days #60 tablet 07/09/19 Furosemide [Lasix] 40 mg PO DAILY #30 tablet 07/09/19 This patient is new to me today: No Emergency Visit: Yes ED Registration Date: 07/07/19 Care time: The patient presented to the Emergency Department on the above date and was hospitalized for further evaluation of their emergent condition. Critical Care patient: No - Discharge Referral Referred to [facility] No ATTENDING PHYSICIAN STATEMENT I saw and evaluated the patient. I reviewed the resident's note and discussed the case with the resident. I agree with the resident's findings and plan as documented. SUBJECTIVE: OBJECTIVE: ASSESSMENT AND PLAN:
== END 2019-07-09 18:33 | disposition home health service (06) | DRG 309 ==
LOC: JER 15:23 → JERBED 18:20 → J4W 21:45
PROVIDERS: ADMIT Internal Medicine; ATTEND Internal Medicine
DX: I48.91 Unspecified atrial fibrillation (principal); D61.818 Other pancytopenia; E05.90 Thyrotoxicosis, unspecified without thyrotoxic crisis or storm; I51.7 Cardiomegaly; E66.9 Obesity, unspecified; Z68.37 Body mass index [BMI] 37.0-37.9, adult; K83.8 Other specified diseases of biliary tract; D69.6 Thrombocytopenia, unspecified; D72.819 Decreased white blood cell count, unspecified; R42 Dizziness and giddiness; I10 Essential (primary) hypertension; E78.5 Hyperlipidemia, unspecified
CPT/HCPCS: 36415; 71045-TC-FY; 76700-TC; 80048; 80053; 80061; 82247; 82248; 82550; 83721; 83735; 83880; 84100; 84439; 84443; 84481; 84482; 84484; 85025; 85610; 93005; 93010; 93306-TC; 93970-TC; 97116-GP; 97161-GP; 99285-25; J7030

== ENCOUNTER 2022-05-08 11:05 | Observation (INO) | payer BC, OTHER ==
[2022-05-08 12:24] LABS: BASO % 0.5 % (0-2.0); EOS % 3.1 % (0-4.5); HEMATOCRIT 33.4 % (32.4-45.2); LYMPH % 9.8 % (8-40); MCH 29.6 pg (25.7-33.7); MCHC 32.9 g/dl (32.0-36.0); MEAN CELL VOLUME 90.1 fl (80-96); MEAN PLT VOLUME 9.5 fl (7.5-11.1); MONO % 7.2 % (3.8-10.2); NEUT % 79.4 % (42.8-82.8); PLATELET COUNT 131 10^3/uL (134-434); RDW 13.8 % (11.6-15.6); WHITE BLOOD COUNT 4.2 K/mm3 (4.0-10.0)
[2022-05-08 13:11] LABS: CALCIUM 8.2 mg/dL (8.5-10.1)
[2022-05-08 13:12] LABS: ALBUMIN 3.2 g/dl (3.4-5.0); BLOOD UREA NITROGEN 15.8 mg/dL (7-18)
[2022-05-08 13:15] LABS: CREATININE 0.6 mg/dL (0.55-1.3)
[2022-05-08 13:17] LABS: BILIRUBIN,TOTAL 1.2 mg/dL (0.2-1); TOT PROT 6.2 g/dl (6.4-8.2)
[2022-05-08 13:20] LABS: N-TERMINAL BNP 2275.9 pg/ml (5-450)
[2022-05-08 15:24] LABS: PH,URINE 6.5 (5.0-8.0); URINE APPEARANCE CLEAR; URINE BILIRUBIN NEGATIVE (NEGATIVE); URINE COLOR YELLOW; URINE GLUCOSE (UA) NEGATIVE (NEGATIVE); URINE KETONE NEGATIVE (NEGATIVE); URINE LEUK ESTERASE NEGATIVE (NEGATIVE); URINE NITRITE NEGATIVE (NEGATIVE); URINE PROTEIN NEGATIVE (NEGATIVE)
[2022-05-08] MEDS ORDERED: FUROSEMIDE 40 MG/4 ML INJECTABLE VIAL ONE (17:29)
[2022-05-08] MEDS ORDERED: POLYETHYLENE GLYCOL (HEALTHYLAX) 3350 17 GM PACKET ONE (17:29)
[2022-05-08] MEDS ORDERED: FUROSEMIDE 40 MG/4 ML INJECTABLE VIAL IVPUSH SCH (17:30)
[2022-05-08] MEDS: POLYETHYLENE GLYCOL (HEALTHYLAX) 3350 17 GM PACKET PO SCH (17:35)
[2022-05-09] MEDS ORDERED: APIXABAN 5 MG TABLET ONE (00:43)
[2022-05-09] MEDS ORDERED: SENNOSIDES 8.6MG TABLET (FP) PO ONE (00:43)
[2022-05-09] MEDS ORDERED: ATORVASTATIN CA 40 MG TABLET (FP) ONE (00:43)
[2022-05-09] MEDS: ATORVASTATIN CA 40 MG TABLET (FP) PO SCH ×2 (00:48→22:02)
[2022-05-09] MEDS: SENNOSIDES 8.6MG TABLET (FP) PO SCH ×2 (00:48→22:02)
[2022-05-09] MEDS: APIXABAN 5 MG TABLET PO SCH ×3 (00:48→22:02)
[2022-05-09 05:36] VITALS: BMI 30.7
[2022-05-09] MEDS ORDERED: metoPROLOL SUCCINATE 25 MG TAB.SR.24H (FP) PO SCH (10:00)
[2022-05-09] MEDS: POLYETHYLENE GLYCOL (HEALTHYLAX) 3350 17 GM PACKET PO SCH (10:32)
[2022-05-09] MEDS: metoPROLOL SUCCINATE 25 MG TAB.SR.24H (FP) PO SCH (10:33)
[2022-05-09 12:39] LABS: BASO % 0.8 % (0-2.0); HEMATOCRIT 32.3 % (32.4-45.2); HEMOGLOBIN 11.1 GM/dL (10.7-15.3); LYMPH % 31.1 % (8-40); MCH 30.9 pg (25.7-33.7); MCHC 34.4 g/dl (32.0-36.0); MEAN CELL VOLUME 89.9 fl (80-96); MEAN PLT VOLUME 8.8 fl (7.5-11.1); MONO % 11.1 % (3.8-10.2); PLATELET COUNT 122 10^3/uL (134-434); RBC 3.59 M/mm3 (3.60-5.2); RDW 13.7 % (11.6-15.6); WHITE BLOOD COUNT 2.5 K/mm3 (4.0-10.0)
[2022-05-09 12:48] LABS: INR 1.2 (0.83-1.09); PROTHROMBIN TIME (PATIENT) 13.8 SEC (9.7-13.0)
[2022-05-09 12:51] LABS: ACTIVATED PTT 30.4 SECONDS (25.2-36.5)
[2022-05-09 13:21] LABS: CALCIUM 8.4 mg/dL (8.5-10.1)
[2022-05-09 13:22] LABS: ALBUMIN 3.1 g/dl (3.4-5.0); BLOOD UREA NITROGEN 11.3 mg/dL (7-18); MAGNESIUM 2.2 mg/dL (1.8-2.4)
[2022-05-09 13:24] LABS: CHOLESTEROL 166 mg/dL (50-200)
[2022-05-09 13:25] LABS: CREATININE 0.7 mg/dL (0.55-1.3); LDL CHOLESTEROL (ONLY SJRH) 98 mg/dL (5-100); PHOSPHOROUS 3.8 mg/dL (2.5-4.9)
[2022-05-09 13:26] LABS: BILIRUBIN,TOTAL 1.2 mg/dL (0.2-1)
[2022-05-09 13:27] LABS: HDL CHOLESTEROL 47 mg/dL (40-60); TOT PROT 6.2 g/dl (6.4-8.2)
[2022-05-09 13:28] LABS: TRIGLYCERIDES 87 mg/dL (0-150)
[2022-05-10 09:07] LABS: BASO % 0.9 % (0-2.0); EOS % 7.2 % (0-4.5); HEMOGLOBIN 11.3 GM/dL (10.7-15.3); LYMPH % 35.3 % (8-40); MCHC 33.2 g/dl (32.0-36.0); MEAN CELL VOLUME 90.5 fl (80-96); MEAN PLT VOLUME 8.7 fl (7.5-11.1); NEUT % 44.6 % (42.8-82.8); PLATELET COUNT 130 10^3/uL (134-434); RBC 3.76 M/mm3 (3.60-5.2); RDW 14.1 % (11.6-15.6); WHITE BLOOD COUNT 2.9 K/mm3 (4.0-10.0)
[2022-05-10 09:42] LABS: BLOOD UREA NITROGEN 14.7 mg/dL (7-18); CALCIUM 8.3 mg/dL (8.5-10.1)
[2022-05-10 09:46] LABS: CREATININE 0.6 mg/dL (0.55-1.3)
[2022-05-10] MEDS: POLYETHYLENE GLYCOL (HEALTHYLAX) 3350 17 GM PACKET PO SCH (10:38)
[2022-05-10] MEDS: FUROSEMIDE 40 MG TABLET (FP) PO SCH (10:39)
[2022-05-10] MEDS: APIXABAN 5 MG TABLET PO SCH ×2 (10:39→21:30)
[2022-05-10] MEDS: metoPROLOL SUCCINATE 25 MG TAB.SR.24H (FP) PO SCH (10:39)
[2022-05-10] MEDS: SENNOSIDES 8.6MG TABLET (FP) PO SCH (21:30)
[2022-05-10] MEDS: ATORVASTATIN CA 40 MG TABLET (FP) PO SCH (21:30)
[2022-05-11] MEDS: POLYETHYLENE GLYCOL (HEALTHYLAX) 3350 17 GM PACKET PO SCH (10:19)
[2022-05-11] MEDS: metoPROLOL SUCCINATE 25 MG TAB.SR.24H (FP) PO SCH (10:19)
[2022-05-11] MEDS: APIXABAN 5 MG TABLET PO SCH ×2 (10:19→22:06)
[2022-05-11] MEDS: FUROSEMIDE 40 MG TABLET (FP) PO SCH (10:19)
[2022-05-11 12:30] LABS: PH,URINE 6.5 (5.0-8.0); URINE APPEARANCE CLEAR; URINE BILIRUBIN NEGATIVE (NEGATIVE); URINE COLOR YELLOW; URINE GLUCOSE (UA) NEGATIVE (NEGATIVE); URINE KETONE NEGATIVE (NEGATIVE); URINE LEUK ESTERASE NEGATIVE (NEGATIVE); URINE NITRITE NEGATIVE (NEGATIVE); URINE PROTEIN NEGATIVE (NEGATIVE)
[2022-05-11] MEDS: SENNOSIDES 8.6MG TABLET (FP) PO SCH (22:06)
[2022-05-11] MEDS: ATORVASTATIN CA 40 MG TABLET (FP) PO SCH (22:06)
[2022-05-12] MEDS: POLYETHYLENE GLYCOL (HEALTHYLAX) 3350 17 GM PACKET PO SCH (10:59)
[2022-05-12] MEDS: APIXABAN 5 MG TABLET PO SCH ×2 (10:59→22:22)
[2022-05-12] MEDS: FUROSEMIDE 40 MG TABLET (FP) PO SCH (10:59)
[2022-05-12] MEDS: metoPROLOL SUCCINATE 25 MG TAB.SR.24H (FP) PO SCH (10:59)
[2022-05-12] MEDS ORDERED: ACETAMINOPHEN 325 MG TABLET (FP) PO ONE (11:58)
[2022-05-12] MEDS ORDERED: MELATONIN 5 MG TABLETS PO PRN (15:00)
[2022-05-12 16:54] LABS: BASO % 0.9 % (0-2.0); EOS % 5.3 % (0-4.5); HEMATOCRIT 32.9 % (32.4-45.2); HEMOGLOBIN 11.3 GM/dL (10.7-15.3); LYMPH % 33.7 % (8-40); MCHC 34.5 g/dl (32.0-36.0); MEAN CELL VOLUME 89.9 fl (80-96); MEAN PLT VOLUME 8.6 fl (7.5-11.1); MONO % 9.7 % (3.8-10.2); NEUT % 50.4 % (42.8-82.8); PLATELET COUNT 142 10^3/uL (134-434); RBC 3.66 M/mm3 (3.60-5.2); RDW 13.9 % (11.6-15.6); WHITE BLOOD COUNT 3.8 K/mm3 (4.0-10.0)
[2022-05-12] MEDS: SENNOSIDES 8.6MG TABLET (FP) PO SCH (22:22)
[2022-05-12] MEDS: ATORVASTATIN CA 40 MG TABLET (FP) PO SCH (22:22)
[2022-05-13 08:49] LABS: BASO % 0.9 % (0-2.0); EOS % 6.3 % (0-4.5); HEMATOCRIT 32.2 % (32.4-45.2); HEMOGLOBIN 11.2 GM/dL (10.7-15.3); LYMPH % 42.7 % (8-40); MCH 31.2 pg (25.7-33.7); MCHC 34.8 g/dl (32.0-36.0); MEAN CELL VOLUME 89.7 fl (80-96); MONO % 8.1 % (3.8-10.2); PLATELET COUNT 139 10^3/uL (134-434); RBC 3.59 M/mm3 (3.60-5.2); RDW 13.7 % (11.6-15.6); WHITE BLOOD COUNT 3.9 K/mm3 (4.0-10.0)
[2022-05-13 09:04] LABS: BLOOD UREA NITROGEN 17.4 mg/dL (7-18); CALCIUM 8.3 mg/dL (8.5-10.1)
[2022-05-13 09:09] LABS: CREATININE 0.6 mg/dL (0.55-1.3)
[2022-05-13] MEDS: POLYETHYLENE GLYCOL (HEALTHYLAX) 3350 17 GM PACKET PO SCH (09:44)
[2022-05-13] MEDS: metoPROLOL SUCCINATE 25 MG TAB.SR.24H (FP) PO SCH (09:44)
[2022-05-13] MEDS: FUROSEMIDE 40 MG TABLET (FP) PO SCH (09:44)
[2022-05-13] MEDS: APIXABAN 5 MG TABLET PO SCH (09:44)
[2022-05-13 09:46] VITALS: BP 119/52; PULSE 72; RESP 18; TEMP 97.8
== END 2022-05-13 13:10 | disposition left against medical advice (07) ==
LOC: JER 11:05 → JERBED 16:11 → J4W 05-09 05:38
PROVIDERS: ADMIT Internal Medicine; ATTEND Internal Medicine
PROC: 3E033GC Introduction of Other Therapeutic Substance into Peripheral Vein, Percutaneous Approach (ICD-10-PCS; principal; 2022-05-08)
DX: I48.91 Unspecified atrial fibrillation (principal); K59.00 Constipation, unspecified; E78.5 Hyperlipidemia, unspecified; E78.00 Pure hypercholesterolemia, unspecified; I89.0 Lymphedema, not elsewhere classified; I10 Essential (primary) hypertension; Z29.8 Encounter for other specified prophylactic measures; M25.552 Pain in left hip
CPT/HCPCS: 36415; 71045-TC-FY; 80048; 80053; 80061; 81003; 82140; 83735; 83880; 84100; 84439; 84443; 84484; 85025; 85610; 85730; 87086; 93005; 93010; 93306-TC; 96374; 97116-GP; 97162-GP; 99285-25; C9803-CS; G0378; U0003; U0005

== ENCOUNTER 2023-04-14 14:18 | Observation (INO) | payer BC ==
[2023-04-14 14:50] VITALS: BMI 29.8
[2023-04-14 15:50] LABS: BASO % 0.6 % (0-2.0); EOS % 4.3 % (0-4.5); HEMOGLOBIN 12.3 GM/dL (10.7-15.3); LYMPH % 21.5 % (8-40); MCH 29.9 pg (25.7-33.7); MCHC 34.1 g/dl (32.0-36.0); MEAN CELL VOLUME 87.8 fl (80-96); MEAN PLT VOLUME 8.9 fl (7.5-11.1); MONO % 7.8 % (3.8-10.2); NEUT % 65.8 % (42.8-82.8); PLATELET COUNT 133 10^3/uL (134-434); RBC 4.11 M/mm3 (3.60-5.2); RDW 13.5 % (11.6-15.6); WHITE BLOOD COUNT 4.6 K/mm3 (4.0-10.0)
[2023-04-14] MEDS ORDERED: ACETAMINOPHEN 1000 MG/100 ML BAG IVPB ONE (15:54)
[2023-04-14] MEDS ORDERED: LIDOCAINE 5% TOPICAL PATCH TP ONE (15:54)
[2023-04-14] MEDS ORDERED: LIDOCAINE 5% TOPICAL PATCH ONE (16:05)
[2023-04-14] MEDS ORDERED: ACETAMINOPHEN INJECTION 100 ML IVPB ONE (16:05)
[2023-04-14 16:12] LABS: POTASSIUM 3.9 mmol/L (3.5-5.1)
[2023-04-14 16:14] LABS: ALBUMIN 3.5 g/dl (3.4-5.0); BLOOD UREA NITROGEN 15.8 mg/dL (7-18); CALCIUM 8.7 mg/dL (8.5-10.1)
[2023-04-14 16:17] LABS: CREATININE 0.9 mg/dL (0.55-1.3)
[2023-04-14 16:19] LABS: BILIRUBIN,TOTAL 1.6 mg/dL (0.2-1); TOT PROT 6.6 g/dl (6.4-8.2)
[2023-04-14] MEDS ORDERED: IBUPROFEN 400 MG TABLET (FP) PO ONE ×2 (17:59→18:06)
[2023-04-14 18:49] LABS: URINE APPEARANCE CLEAR; URINE BILIRUBIN NEGATIVE (NEGATIVE); URINE COLOR DK YELLOW; URINE GLUCOSE (UA) NEGATIVE (NEGATIVE); URINE KETONE TRACE (NEGATIVE); URINE LEUK ESTERASE NEGATIVE (NEGATIVE); URINE NITRITE NEGATIVE (NEGATIVE); URINE PROTEIN TRACE (NEGATIVE)
[2023-04-14] MEDS ORDERED: morphine CARPU-JECT 2 MG/1 ML DISP.SYRIN IVPUSH ONE (19:38)
[2023-04-14] MEDS ORDERED: LIDOCAINE PATCH REMOVAL MC SCH (22:00)
[2023-04-15] MEDS ORDERED: ACETAMINOPHEN 1000 MG/100 ML BAG IVPB PRN (01:12)
[2023-04-15] MEDS ORDERED: AMOX TR/POT CLAV 875MG/125MG TABLETS (FP) PO SCH (02:07)
[2023-04-15] MEDS ORDERED: AMOX TR/POT CLAV 875MG/125MG TABLETS (FP) ONE (02:41)
[2023-04-15] MEDS ORDERED: APIXABAN 5 MG TABLET ONE ×2 (02:41→12:01)
[2023-04-15] MEDS ORDERED: ACETAMINOPHEN INJECTION 100 ML IVPB ONE (02:42)
[2023-04-15] MEDS: APIXABAN 5 MG TABLET PO SCH ×2 (02:46→12:21)
[2023-04-15 08:05] LABS: BASO % 0.8 % (0-2.0); HEMATOCRIT 36.5 % (32.4-45.2); HEMOGLOBIN 12.1 GM/dL (10.7-15.3); LYMPH % 22.4 % (8-40); MCH 29.4 pg (25.7-33.7); MCHC 33.1 g/dl (32.0-36.0); MEAN CELL VOLUME 88.9 fl (80-96); MEAN PLT VOLUME 9.9 fl (7.5-11.1); MONO % 7.7 % (3.8-10.2); NEUT % 64.1 % (42.8-82.8); PLATELET COUNT 134 10^3/uL (134-434); RBC 4.11 M/mm3 (3.60-5.2); RDW 13.4 % (11.6-15.6); WHITE BLOOD COUNT 4.1 K/mm3 (4.0-10.0)
[2023-04-15 08:27] LABS: POTASSIUM 3.4 mmol/L (3.5-5.1)
[2023-04-15 08:30] LABS: BLOOD UREA NITROGEN 16.3 mg/dL (7-18); CALCIUM 8.7 mg/dL (8.5-10.1)
[2023-04-15 08:31] LABS: ALBUMIN 3.3 g/dl (3.4-5.0); MAGNESIUM 2.4 mg/dL (1.8-2.4)
[2023-04-15 08:33] LABS: BILIRUBIN,DIRECT 0.4 mg/dL (0.0-0.2); CREATININE 0.8 mg/dL (0.55-1.3); PHOSPHOROUS 4.3 mg/dL (2.5-4.9)
[2023-04-15 08:35] LABS: BILIRUBIN,TOTAL 1.8 mg/dL (0.2-1); TOT PROT 6.3 g/dl (6.4-8.2)
[2023-04-15 08:55] LABS: BILIRUBIN,DIRECT 0.4 mg/dL (0.0-0.2)
[2023-04-15] MEDS ORDERED: POTASSIUM CHLORIDE TABS 20 MEQ TABLET.ER (FP) PO SCH (10:00)
[2023-04-15] MEDS ORDERED: ENOXAPARIN NA (PORCINE) 40 MG/0.4 ML DISP.SYRIN SQ SCH (10:00)
[2023-04-15] MEDS ORDERED: POTASSIUM CHLORIDE TABS 20 MEQ TABLET.ER (FP) PO ONE (12:02)
[2023-04-15] MEDS ORDERED: KCL 10 MEQ IVPB 10 MEQ/100 ML INFUS.BAG IVPB ONE (12:02)
[2023-04-15] MEDS: KCL 10 MEQ IVPB 10 MEQ/100 ML INFUS.BAG IVPB SCH ×2 (12:21→12:22)
[2023-04-15 15:09] VITALS: BP 101/52; PULSE 70; RESP 17; TEMP 98.1
[2023-04-15] MEDS ORDERED: ATORVASTATIN CA 20 MG TABLET (FP) PO SCH (22:00)
== END 2023-04-15 15:15 | disposition home or self-care (01) ==
LOC: JER 14:18 → JERBED 22:28
PROVIDERS: ADMIT Internal Medicine; ATTEND Internal Medicine
PROC: 3E033NZ Introduction of Analgesics, Hypnotics, Sedatives into Peripheral Vein, Percutaneous Approach (ICD-10-PCS; principal; 2023-04-14)
DX: M25.551 Pain in right hip (principal); N39.0 Urinary tract infection, site not specified; I11.0 Hypertensive heart disease with heart failure; I50.30 Unspecified diastolic (congestive) heart failure; I48.91 Unspecified atrial fibrillation; Z79.01 Long term (current) use of anticoagulants; Z96.653 Presence of artificial knee joint, bilateral; E78.5 Hyperlipidemia, unspecified; R26.2 Difficulty in walking, not elsewhere classified
CPT/HCPCS: 36415; 72170-TC-FY; 73502-TC-RT-FY; 73552-TC-RT-FY; 74177-TC; 80053; 81003; 82248; 83735; 84100; 85025; 87086; 96374; 96375; 96376; 97116-GP; 97161-GP; 99285-25; G0378; Q9967

== ENCOUNTER 2023-04-21 15:02 | Inpatient (IN) | payer BC ==
[2023-04-21 16:10] LABS: EOS % 0.7 % (0-4.5); HEMOGLOBIN 13.2 GM/dL (10.7-15.3); LYMPH % 17.1 % (8-40); MCH 29.7 pg (25.7-33.7); MCHC 33.7 g/dl (32.0-36.0); MEAN CELL VOLUME 88.1 fl (80-96); MEAN PLT VOLUME 9.4 fl (7.5-11.1); MONO % 5.2 % (3.8-10.2); PLATELET COUNT 139 10^3/uL (134-434); RBC 4.43 M/mm3 (3.60-5.2); RDW 13.5 % (11.6-15.6); VENOUS BASE EXCESS 1.9 mmol/L (-2-2); VENOUS O2 SATURATION 38.6 % (70-80); VENOUS PCO2 45.4 mmHg (38-52); VENOUS PH 7.397 (7.310-7.410); WHITE BLOOD COUNT 3.5 K/mm3 (4.0-10.0)
[2023-04-21 16:31] LABS: ALBUMIN 3.4 g/dl (3.4-5.0); BLOOD UREA NITROGEN 22.1 mg/dL (7-18); CALCIUM 8.4 mg/dL (8.5-10.1)
[2023-04-21 16:34] LABS: CREATININE 1.2 mg/dL (0.55-1.3)
[2023-04-21 16:35] LABS: BILIRUBIN,TOTAL 0.9 mg/dL (0.2-1); TOT PROT 6.7 g/dl (6.4-8.2)
[2023-04-21] MEDS ORDERED: BISACODYL 10 MG SUPP.RECT PR ONE (16:56)
[2023-04-21] MEDS ORDERED: LACTATED RINGERS SOLUTION 1000 ML INFUS.BAG IV ONE (17:06)
[2023-04-21] MEDS ORDERED: SODIUM CHLORIDE 0.9% 1000 ML INFUS.BAG IV ONE (17:22)
[2023-04-21 19:53] LABS: EPI CELLS >36 /uL (0-25.1); HYALINE CASTS 13 /uL (0-3.1); URINE APPEARANCE Cloudy; URINE BACTERIA 18 /uL (0-1359); URINE BILIRUBIN Negative (NEGATIVE); URINE COLOR Yellow; URINE GLUCOSE (UA) Negative (NEGATIVE); URINE KETONE Trace (NEGATIVE); URINE LEUK ESTERASE Negative (NEGATIVE); URINE NITRITE Negative (NEGATIVE); URINE PROTEIN 100 (NEGATIVE); URINE RBC 29 /uL (0-23.9)
[2023-04-21 19:56] LABS: URINE WBC NONE SEEN /uL (0-25.8)
[2023-04-21] MEDS ORDERED: ACETAMINOPHEN INJECTION 100 ML IVPB ONE (20:58)
[2023-04-21] MEDS ORDERED: ACETAMINOPHEN 1000 MG/100 ML BAG IVPB ONE (21:09)
[2023-04-22 05:51] VITALS: BMI 29.3
[2023-04-22 07:43] LABS: BASO % 0.4 % (0-2.0); EOS % 0.3 % (0-4.5); HEMATOCRIT 38.1 % (32.4-45.2); HEMOGLOBIN 12.9 GM/dL (10.7-15.3); LYMPH % 14.9 % (8-40); MCH 29.7 pg (25.7-33.7); MCHC 33.7 g/dl (32.0-36.0); MEAN PLT VOLUME 9.6 fl (7.5-11.1); MONO % 6.6 % (3.8-10.2); NEUT % 77.8 % (42.8-82.8); PLATELET COUNT 131 10^3/uL (134-434); RBC 4.33 M/mm3 (3.60-5.2); RDW 13.4 % (11.6-15.6); WHITE BLOOD COUNT 4.7 K/mm3 (4.0-10.0)
[2023-04-22 07:54] LABS: INR 1.05 (0.83-1.09); PROTHROMBIN TIME (PATIENT) 12.2 SEC (9.7-13.0)
[2023-04-22 07:57] LABS: ACTIVATED PTT 27.6 SECONDS (25.2-36.5)
[2023-04-22 08:12] LABS: POTASSIUM 3.1 mmol/L (3.5-5.1)
[2023-04-22 08:21] LABS: CALCIUM 8.4 mg/dL (8.5-10.1)
[2023-04-22 08:22] LABS: ALBUMIN 3.2 g/dl (3.4-5.0); BLOOD UREA NITROGEN 22.6 mg/dL (7-18); MAGNESIUM 2.1 mg/dL (1.8-2.4)
[2023-04-22 08:25] LABS: CREATININE 0.9 mg/dL (0.55-1.3); TOT PROT 6.3 g/dl (6.4-8.2)
[2023-04-22 08:27] LABS: PHOSPHOROUS 3.8 mg/dL (2.5-4.9)
[2023-04-22] MEDS: APIXABAN 5 MG TABLET PO SCH ×2 (11:00→20:59)
[2023-04-22] MEDS ORDERED: LACTATED RINGERS SOLUTION 1000 ML INFUS.BAG IV ONE (14:54)
[2023-04-22] MEDS: POTASSIUM CHLORIDE TABS 20 MEQ TABLET.ER (FP) PO SCH (17:17)
[2023-04-22] MEDS: ATORVASTATIN CA 20 MG TABLET (FP) PO SCH (20:59)
[2023-04-23] MEDS: POTASSIUM CHLORIDE TABS 20 MEQ TABLET.ER (FP) PO SCH (10:11)
[2023-04-23] MEDS: APIXABAN 5 MG TABLET PO SCH ×2 (10:11→21:06)
[2023-04-23 11:57] LABS: BASO % 0.2 % (0-2.0); EOS % 0.1 % (0-4.5); HEMATOCRIT 36.4 % (32.4-45.2); HEMOGLOBIN 12.3 GM/dL (10.7-15.3); LYMPH % 12.3 % (8-40); MCH 29.9 pg (25.7-33.7); MCHC 33.7 g/dl (32.0-36.0); MEAN CELL VOLUME 88.7 fl (80-96); MEAN PLT VOLUME 9.3 fl (7.5-11.1); MONO % 5.8 % (3.8-10.2); NEUT % 81.6 % (42.8-82.8); PLATELET COUNT 118 10^3/uL (134-434); RBC 4.11 M/mm3 (3.60-5.2); RDW 13.2 % (11.6-15.6); WHITE BLOOD COUNT 7.4 K/mm3 (4.0-10.0)
[2023-04-23] MEDS ORDERED: LACTATED RINGERS SOLUTION 1,000 ML/1,000 ML INFUS.BAG IV SCH (13:30)
[2023-04-23 13:41] LABS: ALBUMIN 2.6 g/dl (3.4-5.0); BILIRUBIN,TOTAL 1.4 mg/dL (0.2-1); BLOOD UREA NITROGEN 14.9 mg/dL (7-18); CALCIUM 7.9 mg/dL (8.5-10.1); CREATININE 0.7 mg/dL (0.55-1.3); MAGNESIUM 1.9 mg/dL (1.8-2.4); PHOSPHOROUS 2.9 mg/dL (2.5-4.9); POTASSIUM 3.3 mmol/L (3.5-5.1); TOT PROT 5.8 g/dl (6.4-8.2)
[2023-04-23] MEDS ORDERED: POTASSIUM CHLORIDE TABS 20 MEQ TABLET.ER (FP) PO ONE (14:15)
[2023-04-23] MEDS ORDERED: METOPROLOL TARTRATE 5 MG/5 ML VIAL IVPUSH PRN (20:18)
[2023-04-23 21:06] LABS: EPI CELLS 5 /uL (0-25.1); HYALINE CASTS 1 /uL (0-3.1); URINE APPEARANCE CLEAR; URINE BACTERIA 6 /uL (0-1359); URINE BILIRUBIN 1+ (NEGATIVE); URINE COLOR DK YELLOW; URINE GLUCOSE (UA) NEGATIVE (NEGATIVE); URINE KETONE 1+ (NEGATIVE); URINE LEUK ESTERASE NEGATIVE (NEGATIVE); URINE NITRITE NEGATIVE (NEGATIVE); URINE PROTEIN 1+ (NEGATIVE); URINE RBC 14 /uL (0-23.9); URINE WBC 3 /uL (0-25.8)
[2023-04-23] MEDS: ATORVASTATIN CA 20 MG TABLET (FP) PO SCH (21:06)
[2023-04-24 07:27] LABS: BASO % 0.2 % (0-2.0); EOS % 0.3 % (0-4.5); HEMATOCRIT 35.5 % (32.4-45.2); HEMOGLOBIN 11.8 GM/dL (10.7-15.3); LYMPH % 15.2 % (8-40); MCH 29.6 pg (25.7-33.7); MCHC 33.3 g/dl (32.0-36.0); MEAN CELL VOLUME 88.8 fl (80-96); MONO % 5.6 % (3.8-10.2); NEUT % 78.7 % (42.8-82.8); PLATELET COUNT 118 10^3/uL (134-434); RDW 13.5 % (11.6-15.6); WHITE BLOOD COUNT 6.6 K/mm3 (4.0-10.0)
[2023-04-24 07:42] LABS: ALBUMIN 2.4 g/dl (3.4-5.0); BLOOD UREA NITROGEN 10.3 mg/dL (7-18); CALCIUM 7.8 mg/dL (8.5-10.1); MAGNESIUM 1.9 mg/dL (1.8-2.4)
[2023-04-24 07:45] LABS: CREATININE 0.6 mg/dL (0.55-1.3); PHOSPHOROUS 2.5 mg/dL (2.5-4.9)
[2023-04-24 07:47] LABS: BILIRUBIN,TOTAL 1.2 mg/dL (0.2-1); TOT PROT 5.4 g/dl (6.4-8.2)
[2023-04-24] MEDS: metoPROLOL SUCCINATE 25 MG TAB.SR.24H (FP) PO SCH (09:32)
[2023-04-24] MEDS: APIXABAN 5 MG TABLET PO SCH ×2 (09:32→21:05)
[2023-04-24] MEDS: POTASSIUM CHLORIDE TABS 20 MEQ TABLET.ER (FP) PO SCH (09:32)
[2023-04-24] MEDS: ATORVASTATIN CA 20 MG TABLET (FP) PO SCH (21:05)
[2023-04-25 07:21] LABS: BASO % 0.4 % (0-2.0); EOS % 0.4 % (0-4.5); HEMATOCRIT 35.6 % (32.4-45.2); HEMOGLOBIN 11.6 GM/dL (10.7-15.3); LYMPH % 14.8 % (8-40); MCH 29.5 pg (25.7-33.7); MCHC 32.7 g/dl (32.0-36.0); MEAN CELL VOLUME 90.2 fl (80-96); MEAN PLT VOLUME 10.1 fl (7.5-11.1); MONO % 7.4 % (3.8-10.2); PLATELET COUNT 129 10^3/uL (134-434); RBC 3.95 M/mm3 (3.60-5.2); WHITE BLOOD COUNT 5.8 K/mm3 (4.0-10.0)
[2023-04-25 07:45] LABS: CALCIUM 7.8 mg/dL (8.5-10.1)
[2023-04-25 07:46] LABS: ALBUMIN 2.4 g/dl (3.4-5.0); BLOOD UREA NITROGEN 12.8 mg/dL (7-18); MAGNESIUM 1.8 mg/dL (1.8-2.4)
[2023-04-25 07:49] LABS: CREATININE 0.6 mg/dL (0.55-1.3); PHOSPHOROUS 3.2 mg/dL (2.5-4.9)
[2023-04-25 07:50] LABS: TOT PROT 5.4 g/dl (6.4-8.2)
[2023-04-25] MEDS ORDERED: ACETAMINOPHEN 325 MG TABLET (FP) PO PRN (07:50)
[2023-04-25 07:51] LABS: BILIRUBIN,TOTAL 1.2 mg/dL (0.2-1)
[2023-04-25] MEDS: metoPROLOL SUCCINATE 25 MG TAB.SR.24H (FP) PO SCH (09:31)
[2023-04-25] MEDS: POTASSIUM CHLORIDE TABS 20 MEQ TABLET.ER (FP) PO SCH (09:31)
[2023-04-25] MEDS: APIXABAN 5 MG TABLET PO SCH ×2 (09:31→21:35)
[2023-04-25] MEDS: ACETAMINOPHEN 325 MG TABLET (FP) PO PRN ×2 (11:38→21:35)
[2023-04-25] MEDS: ATORVASTATIN CA 20 MG TABLET (FP) PO SCH (21:35)
[2023-04-26 07:47] LABS: BASO % 0.6 % (0-2.0); EOS % 1.7 % (0-4.5); HEMATOCRIT 35.2 % (32.4-45.2); HEMOGLOBIN 11.8 GM/dL (10.7-15.3); LYMPH % 18.3 % (8-40); MCH 29.7 pg (25.7-33.7); MCHC 33.4 g/dl (32.0-36.0); MEAN CELL VOLUME 89.1 fl (80-96); MEAN PLT VOLUME 9.5 fl (7.5-11.1); MONO % 8.4 % (3.8-10.2); PLATELET COUNT 140 10^3/uL (134-434); RBC 3.95 M/mm3 (3.60-5.2); RDW 13.8 % (11.6-15.6); WHITE BLOOD COUNT 4.8 K/mm3 (4.0-10.0)
[2023-04-26 08:00] LABS: CALCIUM 7.4 mg/dL (8.5-10.1)
[2023-04-26 08:01] LABS: ALBUMIN 2.3 g/dl (3.4-5.0); BLOOD UREA NITROGEN 11.9 mg/dL (7-18); MAGNESIUM 1.9 mg/dL (1.8-2.4)
[2023-04-26 08:04] LABS: CREATININE 0.6 mg/dL (0.55-1.3); PHOSPHOROUS 3.2 mg/dL (2.5-4.9)
[2023-04-26 08:05] LABS: TOT PROT 5.5 g/dl (6.4-8.2)
[2023-04-26] MEDS: metoPROLOL SUCCINATE 25 MG TAB.SR.24H (FP) PO SCH (09:26)
[2023-04-26] MEDS: POTASSIUM CHLORIDE TABS 20 MEQ TABLET.ER (FP) PO SCH (09:26)
[2023-04-26] MEDS: APIXABAN 5 MG TABLET PO SCH ×2 (09:26→21:37)
[2023-04-26] MEDS: ATORVASTATIN CA 20 MG TABLET (FP) PO SCH (21:37)
[2023-04-27 08:20] LABS: POTASSIUM 4.2 mmol/L (3.5-5.1)
[2023-04-27 08:22] LABS: HEMATOCRIT 35.6 % (32.4-45.2); HEMOGLOBIN 11.9 GM/dL (10.7-15.3); MCH 29.9 pg (25.7-33.7); MCHC 33.6 g/dl (32.0-36.0); MEAN CELL VOLUME 89.1 fl (80-96); MEAN PLT VOLUME 9.6 fl (7.5-11.1); PLATELET COUNT 162 10^3/uL (134-434); RBC 3.99 M/mm3 (3.60-5.2); RDW 13.2 % (11.6-15.6); WHITE BLOOD COUNT 4.1 K/mm3 (4.0-10.0)
[2023-04-27 08:25] LABS: ALBUMIN 2.4 g/dl (3.4-5.0); BLOOD UREA NITROGEN 9.6 mg/dL (7-18); CALCIUM 7.9 mg/dL (8.5-10.1)
[2023-04-27 08:28] LABS: CREATININE 0.6 mg/dL (0.55-1.3); PHOSPHOROUS 3.3 mg/dL (2.5-4.9)
[2023-04-27 08:30] LABS: TOT PROT 5.5 g/dl (6.4-8.2)
[2023-04-27] MEDS: ACETAMINOPHEN 325 MG TABLET (FP) PO PRN (10:40)
[2023-04-27] MEDS: APIXABAN 5 MG TABLET PO SCH (10:40)
[2023-04-27] MEDS: POTASSIUM CHLORIDE TABS 20 MEQ TABLET.ER (FP) PO SCH (10:40)
[2023-04-27] MEDS: metoPROLOL SUCCINATE 25 MG TAB.SR.24H (FP) PO SCH (10:41)
[2023-04-27 11:30] LABS: ANISOCYTOSIS 0; HELMET CELLS 0; HOWELL-JOLLY BODIES 0; MACROCYTOSIS 0; OVALOCYTE 0; ROULEAU 0; SICKELED CELLS 0; TARGET CELLS 0; TEAR DROP CELLS 0; TOXIC GRANULATION 0
[2023-04-27 11:31] VITALS: TEMP 98.4
[2023-04-27 18:52] VITALS: BP 98/59; PULSE 81; RESP 18
== END 2023-04-27 11:30 | disposition home health service (06) | DRG 178 ==
LOC: JER 15:02 → JERBED 15:46 → J2W 04-22 00:08 → OBSVTOIN 04-24 12:11
PROVIDERS: ADMIT Internal Medicine; ATTEND Internal Medicine
DX: U07.1 COVID-19 (principal); I50.32 Chronic diastolic (congestive) heart failure; I48.91 Unspecified atrial fibrillation; Z79.01 Long term (current) use of anticoagulants; I95.89 Other hypotension; K59.00 Constipation, unspecified; I11.0 Hypertensive heart disease with heart failure; R55 Syncope and collapse; E87.6 Hypokalemia; D72.819 Decreased white blood cell count, unspecified; R33.8 Other retention of urine
CPT/HCPCS: 0241U-QW; 36415; 71045-TC-FY; 74177-TC; 76705-TC; 80053; 81003; 82550; 82553; 82803; 83605; 83735; 84100; 84484; 85025; 85610; 85730; 86850; 86900; 86901; 87040; 87086; 87324; 87449; 87635; 93005; 93010; 97116-GP; 97162-GP; 99285-25; G0378; Q9967

== ENCOUNTER 2023-05-01 16:04 | Inpatient (IN) | payer BC ==
[2023-05-01] MEDS ORDERED: SODIUM CHLORIDE 0.9% 500 ML INFUS.BAG IV ONE (16:46)
[2023-05-01] MEDS ORDERED: PIPERACILLIN/TAZOB 4.5 GM 4.5 GM in DEXTROSE 5%-WATER 100 ML IVPB ONE (17:09)
[2023-05-01] MEDS ORDERED: VANCOMYCIN 1,000 MG in DEXTROSE 5%-WATER - 250 ML IVPB ONE (17:09)
[2023-05-01] MEDS ORDERED: PIPERACILLIN/TAZOB 4.5 GM 4.5 GM/100 ML BAG IVPB ONE (17:13)
[2023-05-01 17:20] LABS: BASO % 0.5 % (0-2.0); HEMATOCRIT 35.1 % (32.4-45.2); HEMOGLOBIN 11.8 GM/dL (10.7-15.3); LYMPH % 18.9 % (8-40); MCH 29.2 pg (25.7-33.7); MCHC 33.7 g/dl (32.0-36.0); MEAN CELL VOLUME 86.5 fl (80-96); MEAN PLT VOLUME 8.4 fl (7.5-11.1); MONO % 6.4 % (3.8-10.2); NEUT % 73.2 % (42.8-82.8); PLATELET COUNT 234 10^3/uL (134-434); RBC 4.06 M/mm3 (3.60-5.2); RDW 13.4 % (11.6-15.6); VENOUS BASE EXCESS -0.2 mmol/L (-2-2); VENOUS O2 SATURATION 74.3 % (70-80); VENOUS PCO2 39.3 mmHg (38-52); VENOUS PH 7.409 (7.310-7.410); WHITE BLOOD COUNT 5.9 K/mm3 (4.0-10.0)
[2023-05-01 17:30] LABS: INR 1.13 (0.83-1.09); PROTHROMBIN TIME (PATIENT) 13.1 SEC (9.7-13.0)
[2023-05-01 17:33] LABS: ACTIVATED PTT 28.5 SECONDS (25.2-36.5)
[2023-05-01] MEDS ORDERED: VANCOMYCIN 1 GRAM (PRE-DOCKED) 1,000 MG/250 ML BAG IVPB ONE (17:40)
[2023-05-01 17:52] LABS: POTASSIUM 4.5 mmol/L (3.5-5.1)
[2023-05-01 17:54] LABS: CALCIUM 8.4 mg/dL (8.5-10.1)
[2023-05-01 17:55] LABS: BLOOD UREA NITROGEN 20.4 mg/dL (7-18); MAGNESIUM 1.8 mg/dL (1.8-2.4)
[2023-05-01 17:57] LABS: CREATININE 1.1 mg/dL (0.55-1.3)
[2023-05-01 17:58] LABS: PHOSPHOROUS 3.6 mg/dL (2.5-4.9)
[2023-05-01 17:59] LABS: TOT PROT 6.6 g/dl (6.4-8.2)
[2023-05-01 18:03] LABS: N-TERMINAL BNP 2659.1 pg/ml (5-450)
[2023-05-01 18:07] LABS: ALBUMIN 2.9 g/dl (3.4-5.0)
[2023-05-01 19:19] LABS: PH,URINE 5.5 (5.0-8.0); URINE APPEARANCE CLEAR; URINE BILIRUBIN NEGATIVE (NEGATIVE); URINE COLOR YELLOW; URINE GLUCOSE (UA) NEGATIVE (NEGATIVE); URINE KETONE NEGATIVE (NEGATIVE); URINE LEUK ESTERASE NEGATIVE (NEGATIVE); URINE NITRITE NEGATIVE (NEGATIVE); URINE PROTEIN TRACE (NEGATIVE)
[2023-05-01] MEDS: SODIUM CHLORIDE 1,000 ML IV SCH (21:57)
[2023-05-02] MEDS: PIPERACILLIN/TAZOB 4.5 GM 4.5 GM in DEXTROSE 5%-WATER 100 ML IVPB SCH ×4 (03:04→20:35)
[2023-05-02 04:34] VITALS: BMI 27.9
[2023-05-02 09:35] LABS: BASO % 0.6 % (0-2.0); EOS % 2.5 % (0-4.5); HEMATOCRIT 31.4 % (32.4-45.2); HEMOGLOBIN 10.8 GM/dL (10.7-15.3); MCH 29.7 pg (25.7-33.7); MCHC 34.3 g/dl (32.0-36.0); MEAN CELL VOLUME 86.7 fl (80-96); MEAN PLT VOLUME 8.2 fl (7.5-11.1); NEUT % 59.9 % (42.8-82.8); PLATELET COUNT 189 10^3/uL (134-434); RBC 3.62 M/mm3 (3.60-5.2); RDW 13.4 % (11.6-15.6); WHITE BLOOD COUNT 4.2 K/mm3 (4.0-10.0)
[2023-05-02 10:09] LABS: POTASSIUM 3.5 mmol/L (3.5-5.1)
[2023-05-02 10:12] LABS: CALCIUM 8.1 mg/dL (8.5-10.1)
[2023-05-02 10:13] LABS: ALBUMIN 2.6 g/dl (3.4-5.0); BLOOD UREA NITROGEN 15.9 mg/dL (7-18); MAGNESIUM 1.7 mg/dL (1.8-2.4)
[2023-05-02 10:16] LABS: CREATININE 0.8 mg/dL (0.55-1.3); PHOSPHOROUS 3.6 mg/dL (2.5-4.9)
[2023-05-02 10:18] LABS: BILIRUBIN,TOTAL 1.4 mg/dL (0.2-1); TOT PROT 5.8 g/dl (6.4-8.2)
[2023-05-02] MEDS: APIXABAN 5 MG TABLET PO SCH ×2 (11:19→22:00)
[2023-05-02] MEDS: SODIUM CHLORIDE 1,000 ML IV SCH (21:19)
[2023-05-02] MEDS: MAGNESIUM OXIDE 400 MG TABLET (FP) PO SCH (21:58)
[2023-05-02] MEDS: ATORVASTATIN CA 20 MG TABLET (FP) PO SCH (22:00)
[2023-05-03] MEDS: PIPERACILLIN/TAZOB 4.5 GM 4.5 GM in DEXTROSE 5%-WATER 100 ML IVPB SCH ×3 (09:34→10:56)
[2023-05-03] MEDS: MAGNESIUM OXIDE 400 MG TABLET (FP) PO SCH (10:52)
[2023-05-03] MEDS: APIXABAN 5 MG TABLET PO SCH ×2 (10:53→21:53)
[2023-05-03 10:57] LABS: BASO % 0.6 % (0-2.0); EOS % 2.4 % (0-4.5); HEMATOCRIT 30.9 % (32.4-45.2); HEMOGLOBIN 10.5 GM/dL (10.7-15.3); LYMPH % 27.3 % (8-40); MCH 29.5 pg (25.7-33.7); MEAN CELL VOLUME 86.6 fl (80-96); MEAN PLT VOLUME 8.4 fl (7.5-11.1); MONO % 7.8 % (3.8-10.2); NEUT % 61.9 % (42.8-82.8); PLATELET COUNT 187 10^3/uL (134-434); RBC 3.57 M/mm3 (3.60-5.2); RDW 13.6 % (11.6-15.6); WHITE BLOOD COUNT 3.8 K/mm3 (4.0-10.0)
[2023-05-03 11:25] LABS: POTASSIUM 3.4 mmol/L (3.5-5.1)
[2023-05-03 11:32] LABS: ALBUMIN 2.6 g/dl (3.4-5.0); MAGNESIUM 1.8 mg/dL (1.8-2.4)
[2023-05-03 11:33] LABS: BLOOD UREA NITROGEN 10.3 mg/dL (7-18)
[2023-05-03 11:36] LABS: BILIRUBIN,TOTAL 1.7 mg/dL (0.2-1); TOT PROT 5.4 g/dl (6.4-8.2)
[2023-05-03 11:37] LABS: CREATININE 0.6 mg/dL (0.55-1.3)
[2023-05-03] MEDS ORDERED: POTASSIUM CHLORIDE TABS 20 MEQ TABLET.ER (FP) PO ONE (16:10)
[2023-05-03] MEDS ORDERED: MAGNESIUM OXIDE 400 MG TABLET (FP) PO ONE (16:10)
[2023-05-03] MEDS: AMOX TR/POT CLAV 875MG/125MG TABLETS (FP) PO SCH (18:06)
[2023-05-03] MEDS: ATORVASTATIN CA 20 MG TABLET (FP) PO SCH (21:53)
[2023-05-03] MEDS ORDERED: ACETAMINOPHEN 325 MG TABLET (FP) PO ONE (21:56)
[2023-05-04] MEDS: AMOX TR/POT CLAV 875MG/125MG TABLETS (FP) PO SCH ×2 (08:59→16:39)
[2023-05-04] MEDS: FUROSEMIDE 40 MG TABLET (FP) PO SCH (09:06)
[2023-05-04] MEDS: metoPROLOL SUCCINATE 25 MG TAB.SR.24H (FP) PO SCH (09:06)
[2023-05-04] MEDS: APIXABAN 5 MG TABLET PO SCH ×2 (09:07→22:29)
[2023-05-04 09:15] LABS: BASO % 0.7 % (0-2.0); EOS % 2.3 % (0-4.5); HEMATOCRIT 32.9 % (32.4-45.2); HEMOGLOBIN 11.1 GM/dL (10.7-15.3); LYMPH % 19.5 % (8-40); MCH 29.9 pg (25.7-33.7); MCHC 33.8 g/dl (32.0-36.0); MEAN CELL VOLUME 88.5 fl (80-96); MONO % 6.3 % (3.8-10.2); NEUT % 71.2 % (42.8-82.8); PLATELET COUNT 209 10^3/uL (134-434); RBC 3.72 M/mm3 (3.60-5.2); RDW 13.3 % (11.6-15.6); WHITE BLOOD COUNT 4.9 K/mm3 (4.0-10.0)
[2023-05-04 09:42] LABS: POTASSIUM 4.1 mmol/L (3.5-5.1)
[2023-05-04 09:57] LABS: ALBUMIN 2.5 g/dl (3.4-5.0)
[2023-05-04 09:58] LABS: BILIRUBIN,TOTAL 1.2 mg/dL (0.2-1); CREATININE 0.5 mg/dL (0.55-1.3)
[2023-05-04 10:00] LABS: BLOOD UREA NITROGEN 10.9 mg/dL (7-18); TOT PROT 5.7 g/dl (6.4-8.2)
[2023-05-04 10:48] LABS: CALCIUM 8.4 mg/dL (8.5-10.1)
[2023-05-04] MEDS: ATORVASTATIN CA 20 MG TABLET (FP) PO SCH (22:29)
[2023-05-05 09:45] LABS: BASO % 1.1 % (0-2.0); EOS % 3.3 % (0-4.5); HEMATOCRIT 33.1 % (32.4-45.2); LYMPH % 23.6 % (8-40); MCH 29.3 pg (25.7-33.7); MCHC 33.3 g/dl (32.0-36.0); MEAN CELL VOLUME 88.1 fl (80-96); MEAN PLT VOLUME 9.1 fl (7.5-11.1); MONO % 7.7 % (3.8-10.2); NEUT % 64.3 % (42.8-82.8); PLATELET COUNT 203 10^3/uL (134-434); RBC 3.76 M/mm3 (3.60-5.2); RDW 13.3 % (11.6-15.6); WHITE BLOOD COUNT 4.1 K/mm3 (4.0-10.0)
[2023-05-05 10:00] LABS: CHLORIDE 109 mmol/L (98-107); POTASSIUM 3.9 mmol/L (3.5-5.1); SODIUM 144 mmol/L (136-145)
[2023-05-05 10:03] LABS: ALBUMIN 2.6 g/dl (3.4-5.0); CALCIUM 8.5 mg/dL (8.5-10.1)
[2023-05-05 10:04] LABS: ANION GAP 6 MMOL/L (8-16); BLOOD UREA NITROGEN 9.2 mg/dL (7-18); CO2 29 mmol/L (21-32); GLUCOSE,RANDOM 87 mg/dL (74-106); MAGNESIUM 1.9 mg/dL (1.8-2.4)
[2023-05-05 10:07] LABS: CREATININE 0.6 mg/dL (0.55-1.3); SGOT/AST 19 U/L (15-37); SGPT/ALT 22 U/L (13-61)
[2023-05-05 10:08] LABS: BILIRUBIN,TOTAL 1.3 mg/dL (0.2-1); TOT PROT 5.7 g/dl (6.4-8.2)
[2023-05-05 10:09] LABS: ALK PHOS 57 U/L (45-117)
[2023-05-05] MEDS: APIXABAN 5 MG TABLET PO SCH ×2 (10:19→23:03)
[2023-05-05] MEDS: AMOX TR/POT CLAV 875MG/125MG TABLETS (FP) PO SCH ×2 (10:19→18:33)
[2023-05-05] MEDS: metoPROLOL SUCCINATE 25 MG TAB.SR.24H (FP) PO SCH (10:20)
[2023-05-05] MEDS: LIDOCAINE 5% TOPICAL PATCH TP SCH (10:42)
[2023-05-05] MEDS: FUROSEMIDE 40 MG TABLET (FP) PO SCH (12:39)
[2023-05-05] MEDS ORDERED: SODIUM CHLORIDE 250 ML IV STA (15:47)
[2023-05-05] MEDS: ATORVASTATIN CA 20 MG TABLET (FP) PO SCH (23:03)
[2023-05-06] MEDS: LIDOCAINE PATCH REMOVAL MC SCH ×2 (07:58→23:07)
[2023-05-06] MEDS: metoPROLOL SUCCINATE 25 MG TAB.SR.24H (FP) PO SCH (09:08)
[2023-05-06] MEDS: AMOX TR/POT CLAV 875MG/125MG TABLETS (FP) PO SCH ×2 (09:08→17:13)
[2023-05-06] MEDS: LIDOCAINE 5% TOPICAL PATCH TP SCH (09:08)
[2023-05-06] MEDS: APIXABAN 5 MG TABLET PO SCH ×2 (09:08→23:03)
[2023-05-06] MEDS: FUROSEMIDE 40 MG TABLET (FP) PO SCH (09:08)
[2023-05-06 11:21] LABS: BASO % 1.1 % (0-2.0); EOS % 3.1 % (0-4.5); HEMOGLOBIN 10.9 GM/dL (10.7-15.3); MCH 30.3 pg (25.7-33.7); MEAN CELL VOLUME 86.7 fl (80-96); MEAN PLT VOLUME 8.8 fl (7.5-11.1); MONO % 7.2 % (3.8-10.2); NEUT % 62.6 % (42.8-82.8); PLATELET COUNT 196 10^3/uL (134-434); RBC 3.58 M/mm3 (3.60-5.2); RDW 13.7 % (11.6-15.6); WHITE BLOOD COUNT 3.9 K/mm3 (4.0-10.0)
[2023-05-06 11:40] LABS: CHLORIDE 108 mmol/L (98-107); POTASSIUM 3.8 mmol/L (3.5-5.1); SODIUM 144 mmol/L (136-145)
[2023-05-06 11:42] LABS: CALCIUM 8.4 mg/dL (8.5-10.1)
[2023-05-06 11:43] LABS: ALBUMIN 2.6 g/dl (3.4-5.0); ANION GAP 6 MMOL/L (8-16); BLOOD UREA NITROGEN 11.5 mg/dL (7-18); CO2 30 mmol/L (21-32); GLUCOSE,RANDOM 112 mg/dL (74-106); MAGNESIUM 1.9 mg/dL (1.8-2.4)
[2023-05-06 11:46] LABS: CREATININE 0.7 mg/dL (0.55-1.3); SGOT/AST 16 U/L (15-37); SGPT/ALT 20 U/L (13-61)
[2023-05-06 11:47] LABS: BILIRUBIN,TOTAL 1.3 mg/dL (0.2-1); TOT PROT 5.7 g/dl (6.4-8.2)
[2023-05-06 11:48] LABS: ALK PHOS 60 U/L (45-117)
[2023-05-06] MEDS: ATORVASTATIN CA 20 MG TABLET (FP) PO SCH (23:04)
[2023-05-07] MEDS: LIDOCAINE 5% TOPICAL PATCH TP SCH (10:09)
[2023-05-07] MEDS: metoPROLOL SUCCINATE 25 MG TAB.SR.24H (FP) PO SCH (10:10)
[2023-05-07] MEDS: AMOX TR/POT CLAV 875MG/125MG TABLETS (FP) PO SCH (10:10)
[2023-05-07] MEDS: APIXABAN 5 MG TABLET PO SCH (10:10)
[2023-05-07] MEDS: FUROSEMIDE 40 MG TABLET (FP) PO SCH (10:10)
[2023-05-07 12:09] VITALS: RESP 20; TEMP 98.4
[2023-05-07 15:26] VITALS: BP 146/68; PULSE 93
== END 2023-05-07 15:47 | DRG 177 ==
LOC: JER 16:04 → JERBED 17:58 → J8W 05-02 00:13
PROVIDERS: ADMIT Internal Medicine; ATTEND Nurse Practitioner Family
DX: U07.1 COVID-19 (principal); J18.9 Pneumonia, unspecified organism; I50.32 Chronic diastolic (congestive) heart failure; E78.5 Hyperlipidemia, unspecified; I48.91 Unspecified atrial fibrillation; I11.0 Hypertensive heart disease with heart failure; R82.71 Bacteriuria; M25.552 Pain in left hip; M25.551 Pain in right hip; Z66 Do not resuscitate; R63.4 Abnormal weight loss; Z68.27 Body mass index [BMI] 27.0-27.9, adult; Z96.653 Presence of artificial knee joint, bilateral
CPT/HCPCS: 0241U-QW; 36415; 71045-TC-FY; 71250-TC; 80053; 81003; 82803; 82962; 83605; 83735; 83880; 84100; 84484; 85025; 85379; 85610; 85730; 86140; 87040; 87086; 87186; 87899; 93005; 93010; 97116-GP; 97161-GP; 99285-25

== ENCOUNTER 2024-01-05 17:39 | Observation (INO) | payer BC, OTHER ==
[2024-01-05 19:03] LABS: BASO % 2.1 % (0-2.0); HEMATOCRIT 36.1 % (32.4-45.2); HEMOGLOBIN 12.6 GM/dL (10.7-15.3); LYMPH % 31.7 % (8-40); MCH 31.5 pg (25.7-33.7); MCHC 34.9 g/dl (32.0-36.0); MEAN CELL VOLUME 90.2 fl (80-96); MEAN PLT VOLUME 9.1 fl (7.5-11.1); MONO % 6.4 % (3.8-10.2); NEUT % 57.8 % (42.8-82.8); PLATELET COUNT 166 10^3/uL (134-434); RBC 4.01 M/mm3 (3.60-5.2); RDW 14.1 % (11.6-15.6); WHITE BLOOD COUNT 4.8 K/mm3 (4.0-10.0)
[2024-01-05] MEDS ORDERED: LIDOCAINE 4% PATCH TP ONE (19:04)
[2024-01-05] MEDS ORDERED: KETOROLAC TROMETHAMINE 30 MG/1 ML VIAL ONE (19:04)
[2024-01-05 19:07] LABS: PH,URINE 6.5 (5.0-8.0); URINE APPEARANCE CLEAR; URINE BILIRUBIN NEGATIVE (NEGATIVE); URINE COLOR YELLOW; URINE GLUCOSE (UA) NEGATIVE (NEGATIVE); URINE KETONE NEGATIVE (NEGATIVE); URINE LEUK ESTERASE NEGATIVE (NEGATIVE); URINE NITRITE NEGATIVE (NEGATIVE); URINE PROTEIN NEGATIVE (NEGATIVE)
[2024-01-05] MEDS: LIDOCAINE 5% TOPICAL PATCH TP ONE (19:16)
[2024-01-05] MEDS: KETOROLAC TROMETHAMINE 30 MG/1 ML VIAL IVPUSH ONE (19:16)
[2024-01-05 19:28] LABS: POTASSIUM 4.9 mmol/L (3.5-5.1)
[2024-01-05 19:31] LABS: CALCIUM 8.8 mg/dL (8.5-10.1)
[2024-01-05 19:32] LABS: ALBUMIN 3.3 g/dl (3.4-5.0); BLOOD UREA NITROGEN 14.9 mg/dL (7-18); MAGNESIUM 2.2 mg/dL (1.8-2.4)
[2024-01-05 19:35] LABS: CREATININE 0.8 mg/dL (0.55-1.3); PHOSPHOROUS 3.7 mg/dL (2.5-4.9)
[2024-01-05 19:36] LABS: TOT PROT 6.7 g/dl (6.4-8.2)
[2024-01-05] MEDS: LIDOCAINE PATCH REMOVAL MC SCH (21:12)
[2024-01-05] MEDS ORDERED: LACTATED RINGERS SOLUTION 1000 ML INFUS.BAG IV ONE (21:15)
[2024-01-05] MEDS: ACETAMINOPHEN 500 MG TABLET (FP) PO SCH (22:17)
[2024-01-05 23:04] VITALS: BMI 37.4
[2024-01-06] MEDS: LACTATED RINGERS SOLUTION 1,000 ML/1,000 ML INFUS.BAG IV SCH (00:47)
[2024-01-06 07:53] LABS: BASO % 0.9 % (0-2.0); EOS % 2.8 % (0-4.5); HEMATOCRIT 33.3 % (32.4-45.2); HEMOGLOBIN 11.4 GM/dL (10.7-15.3); LYMPH % 39.2 % (8-40); MCH 30.8 pg (25.7-33.7); MCHC 34.3 g/dl (32.0-36.0); MEAN CELL VOLUME 89.8 fl (80-96); MEAN PLT VOLUME 8.9 fl (7.5-11.1); MONO % 9.3 % (3.8-10.2); NEUT % 47.8 % (42.8-82.8); PLATELET COUNT 137 10^3/uL (134-434); RBC 3.71 M/mm3 (3.60-5.2); RDW 13.7 % (11.6-15.6); WHITE BLOOD COUNT 3.3 K/mm3 (4.0-10.0)
[2024-01-06 08:11] LABS: POTASSIUM 3.7 mmol/L (3.5-5.1)
[2024-01-06 08:21] LABS: CALCIUM 8.1 mg/dL (8.5-10.1)
[2024-01-06 08:22] LABS: ALBUMIN 2.8 g/dl (3.4-5.0); BLOOD UREA NITROGEN 15.4 mg/dL (7-18); MAGNESIUM 2.2 mg/dL (1.8-2.4)
[2024-01-06 08:25] LABS: CREATININE 0.7 mg/dL (0.55-1.3); PHOSPHOROUS 4.3 mg/dL (2.5-4.9)
[2024-01-06 08:26] LABS: TOT PROT 5.6 g/dl (6.4-8.2)
[2024-01-06 08:27] LABS: BILIRUBIN,TOTAL 1.1 mg/dL (0.2-1)
[2024-01-06] MEDS: APIXABAN 5 MG TABLET PO SCH (09:24)
[2024-01-06] MEDS: metoPROLOL SUCCINATE 25 MG TAB.SR.24H (FP) PO SCH (09:27)
[2024-01-06] MEDS: FUROSEMIDE 20 MG TABLET (FP) PO SCH (09:27)
[2024-01-06] MEDS: GABAPENTIN 100 MG CAPSULE PO SCH (13:46)
[2024-01-06] MEDS: LIDOCAINE 5% TOPICAL PATCH TP SCH (13:51)
[2024-01-06] MEDS ORDERED: ACETAMINOPHEN 500 MG TABLET (FP) PO SCH ×2 (17:46→20:00)
[2024-01-06] MEDS: ACETAMINOPHEN 500 MG TABLET (FP) PO SCH (20:20)
[2024-01-06] MEDS: ATORVASTATIN CA 20 MG TABLET (FP) PO SCH (21:16)
[2024-01-07] MEDS: LIDOCAINE PATCH REMOVAL MC SCH (05:52)
[2024-01-07] MEDS: traMADol HCL 50 MG TABLET PO PRN (11:29)
[2024-01-08] MEDS: KETOROLAC TROMETHAMINE 10 MG TABLET PO SCH (10:04)
[2024-01-08 13:26] VITALS: BP 108/69; PULSE 74; RESP 17; TEMP 97.7
== END 2024-01-08 14:44 | disposition home or self-care (01) ==
LOC: JER 17:39 → UNDOADMOB 21:39 → JERBED 21:39 → OBSVTOIN 21:50 → INTOOBSV 21:50 → JERBED 22:25 → J8W 22:25 → JERBED 01-06 12:16
PROVIDERS: ADMIT Internal Medicine; ATTEND Internal Medicine
PROC: 3E0333Z Introduction of Anti-inflammatory into Peripheral Vein, Percutaneous Approach (ICD-10-PCS; principal; 2024-01-06)
PROC: 3E0337Z Introduction of Electrolytic and Water Balance Substance into Peripheral Vein, Percutaneous Approach (ICD-10-PCS; 2024-01-06)
DX: M54.9 Dorsalgia, unspecified (principal); I48.91 Unspecified atrial fibrillation; M19.90 Unspecified osteoarthritis, unspecified site; I50.30 Unspecified diastolic (congestive) heart failure; E78.5 Hyperlipidemia, unspecified; G89.29 Other chronic pain; M25.552 Pain in left hip; Z79.01 Long term (current) use of anticoagulants; Z87.440 Personal history of urinary (tract) infections; Z96.653 Presence of artificial knee joint, bilateral
CPT/HCPCS: 0241U-QW; 36415; 72131-TC; 74177-TC; 80053; 81003; 82306; 83735; 84100; 85025; 87086; 93005; 93010; 96361; 96374; 97116-GP; 99285-25; G0378; Q9967